=== PATIENT | male | born 1980 | race Caucasian/White ===

== ENCOUNTER → 2019-03-11 08:24 | Outpatient (CLI) | payer OTHER, SELFPAY ==
[2019-03-11 10:32] LABS: Anion Gap 8 (5-15); BUN 10 mg/dL (7-18); BUN/Creat Ratio 11.4 RATIO (10-20); Calcium,Total 9.4 mg/dL (8.5-10.1); Chloride 103 mmol/L (98-107); Cholesterol 184 mg/dL (200); Creatinine, Serum 0.88 mg/dL (0.70-1.30); EST Glomerular Filtration Rate 104 mL/min (>60); Est Glom Filt Rate - Afr Amer 125 mL/min (>60); Glucose 86 mg/dL (74-106); High Density Lipoprotein 29 mg/dL; Potassium 4.5 mmol/L (3.5-5.1); Sodium Level 138 mmol/L (136-145); Triglycerides 171 mg/dL; Very Low Density Lipoprotein 34 mg/dL (5-40)
== END ==
PROVIDERS: Family Provider Family Medicine; PCP Family Medicine; Referring Provider Family Medicine; Visit Provider Family Medicine
DX: Z00.00 Encounter for general adult medical examination without abnormal findings (principal)
CPT/HCPCS: 36415; 80048; 80061

== ENCOUNTER 2019-12-06 08:58 | Inpatient (IN) | payer OTHER, SELFPAY ==
[2019-12-06] VITALS (10 sets, daily range): BP systolic 115–142; BP diastolic 71–98; PULSE 74–112; RESP 16–18; TEMP 36.3–37.5; O2SAT 94–97; BMI 32.3; BMI 32.8; BMI 32.9
--- NOTE | 2019-12-06 09:16 | CT_ITS ---
STUDY: CT ABDOMEN AND PELVIS WITHOUT CONTRAST REASON FOR EXAM: Male, 39 years old patient with diffuse abdominal pain for four days with elevated wbc count. RADIATION DOSAGE (If Supplied By Facility): CTDIvol = ( 15.39 ) mGy, DLP = ( 1528.95 ) mGycm TECHNIQUE: Transaxial images were obtained from the dome of the diaphragm to the symphysis pubis without oral contrast, and without intravenous contrast. Sagittal and coronal images were reconstructed. Individualized dose optimization techniques were used for this CT. COMPARISON: None. FINDINGS: There is heterogeneous groundglass attenuation in the right lower lobe and left lower lobe that may represent a combination of dependent atelectasis and early airspace disease. There is also right middle lobe groundglass attenuation that could represent early airspace disease. The visualized portions of the heart are within normal limits. Normal liver. Normal gallbladder and extrahepatic biliary system. Normal spleen. Normal pancreas. Normal bilateral adrenal glands. Normal right kidney. Normal left kidney. Normal visualized stomach. There is dilated small bowel which is fluid-filled. Maximum transverse dimension of the abnormal small bowel is approximately 4.1 cm. The transition occurs a within the lower central abdomen with appears to be some acute inflammation. There is abnormal thickening of the chirinos of the adjacent mid small bowel. There is pneumoperitoneum within the lower abdomen as well adjacent to the mid small bowel and the sigmoid colon. The distal small bowel is not dilated. The colon is not dilated. Stool and fluid is visible within the colon. There appears to be abnormal thickening and potential enhancement of the sigmoid colon that suggests possibility of acute diverticulitis. The appendix is visualized and appears normal. Normal abdominal aorta. Normal inferior vena cava. Normal retroperitoneum. The urinary bladder is not distended. Normal visualized prostate gland. There is a small amount of pelvic fluid probably related to acute inflammation within the small bowel and/or sigmoid colon. Normal abdominal wall. The bones appear osteopenic. CT/Abdomen/Pelvis W IV Cont ONLY IMPRESSION: 1. Findings are consistent with a cyst small bowel obstruction involving the mid and proximal small bowel. The etiology for the bowel obstruction appears to be abnormal appearing small bowel within the lower abdomen and pelvis with acute inflammation and abnormal thickening of the chirinos. There is also pneumoperitoneum suggesting contained perforation. 2. There appears to be abnormal sigmoid colon as well where there is also pneumoperitoneum suggesting there may be either primary or secondary sigmoid colon diverticulitis. Other potential etiologies include sequela of Crohn''s disease. 3. Bilateral basilar atelectasis and/or airspace disease. N.B. : The above information has been verbally conveyed by Charlee Herring MD to Nicky Judge MD, on 12/06/2019 10:40:00 (ET). Electronically Signed: Charlee Herring MD at 10:48 EST , Service support ,
--- NOTE | 2019-12-06 09:18 | ED.DCSUM_ITS ---
History of Present Illness Informant: Patient, Significant Other - Abdominal Pain/Flank Pain Onset: Days - 3 days Context: Gradual Onset Timing: Intermittent Quality: Cramping Location: Diffuse Current Severity: Severe Maximum Severity: Severe Worsened by: Movement Relieved by: Remaining Still - Nausea/Vomiting/Emesis GI Symptom: Nausea. Negative for: Vomiting - Diarrhea/Melena/Hematochezia GI Symptom: Negative for: Diarrhea, Melena, Hematochezia Associated Symptoms: Negative for: Dysuria, Frequency, Hematuria, Urgency Narrative: 39-year-old male who denies any significant past medical history presents to the emergency department with diffuse cramping intermittent abdominal pain progressively worsening over the last 3 days. He has been having a fever as high as 102 ?F orally as well. He has had nausea but no vomiting. No diarrhea melena or hematochezia. He has been mildly constipated. No back pain or urinary symptoms. Pain really only worse with moving. He has been able to eat. No history of similar pain. No history of abdominal surgery. He has had a colonoscopy roughly 15 years ago that was unremarkable. Prior similar symptoms: No Recent Illness/Hospitalization: No <Lio Cheney - Last Filed: 12/06/19 11:26> <Ashlyn Judge - Last Filed: 12/06/19 13:49> Chief Complaint: Abd Pain Past Medical History Prior records reviewed: Yes Past Medical History: - - Depression and anxiety Surgical History: no surgical history Lives: With Family Smoking Status: Never smoker Alcohol: None <Lio Cheney - Last Filed: 12/06/19 11:26> <Ashyln Judge - Last Filed: 12/06/19 13:49> - Allergies and Home Meds Allergies/Adverse Reactions: Allergies No Known Allergies Allergy (Unverified 12/06/19 09:00) Review of Systems All systems negative except as indicated General: Reports: Chills, Fever. Denies: Malaise, Subjective, Sweats Eyes: Denies: Visual changes - bilaterally, Blurred Vision - bilaterally, Diplopia ENT: Denies: Rhinorrhea, Sore throat Cardiovascular: Denies: Chest pain, Palpitations, Heart racing Respiratory: Denies: Dyspnea, Cough, Sputum Gastrointestinal: Reports: Abdominal pain, Nausea, Constipation. Denies: Vomiting, Diarrhea, Melena, Hematochezia Genitourinary: Denies: Dysuria, Hematuria, Frequency Musculoskeletal: Denies: Myalgias, Arthralgias, Back pain Skin: Denies: Rash, Abscess, Abrasions, Wounds Neurological: Denies: Headache, Weakness, Parasthesia Endocrine: Denies: Polyuria, Polydipsia <Lio Cheney - Last Filed: 12/06/19 11:26> Physical Exam Vital Signs/Narrative: Vital Signs Temp Pulse Resp BP Pulse Ox 12/06/19 09:01 98.4 F 112 H 16 142/90 H 97 Inital Vital Signs reviewed: Yes General: Well nourished, Well developed, No Acute Distress Head: Normocephalic, Atraumatic Eyes: Perrl, EOMI ENT: Moist mucous membranes Neck: Supple, Nontender, No lymphadenopathy Cardiovascular: Regular rate, Regular rhythm, No murmurs Respiratory: No distress, CTA bilaterally, Chest nontender Abdomen: Soft, Nondistended, Normal bowel sounds, No masses, Tender - Diffusely tender. No focal tenderness. No guarding or rebound tenderness.. Negative for: Guarding, Rebound tenderness, Hyperactive bowel sounds, Hypoactive bowel sounds, Ventral hernia, Inguinal hernia, Psoas sign, Obturator sign, Rovsig's sign, Beck's sign Back: Nontender, Normal Inspection Extremities: Nontender, No edema Skin: Normal color, No rash Neurological: Alert, Oriented x3 Psychological: Normal affect <Lio Cheney - Last Filed: 12/06/19 11:26> Diagnostic/Tx/Re-eval CT: Abdomen and Pelvis - Rhythm Strip Rate: 90 - Medical Decision Making Patient declined analgesia or antiemetics but he was given IV fluids. He was made n.p.o. Laboratory work-up shows a white blood cell count of 21. CBC, CMP are both unremarkable. Urinalysis unremarkable as well. CT scan abdomen and pelvis with IV contrast demonstrates small bowel obstruction involving the mid and proximal small bowel. Etiology for this bowel obstruction appears to be abnormal. Small bowel within the lower abdomen and pelvis shows acute inflammation with abnormal thickening of the chirinos. There is also a pneumoperitoneum suggesting a contained perforation. There is been abnormal appearance of the sigmoid colon where there is also pneumoperitoneum suggesting that there may be either primary or secondary sigmoid: Diverticulitis. Other etiologies include sequelae of Crohn's disease. Dr. Tabor on-call surgeon was contacted, she came down to evaluate the patient in the emergency department. She will take the patient to the operating room. Patient is hemodynamically stable. He was given IV Flagyl and Cipro. He is agreeable with plan of care <Lio Cheney - Last Filed: 12/06/19 11:26> - Medical Decision Making I have personally performed a [id number] assessment of the patient and have reviewed the PA note. My macedo findings include 39-year-old male presents with abdominal pain x4 days. CT abdomen pelvis shows small bowel obstruction, pneumoperitoneum, diverticulitis. Patient was discussed with surgery and will be taken to the operating room. <Ashlyn Judge - Last Filed: 12/06/19 13:49> ED Disposition <Lio Cheney - Last Filed: 12/06/19 11:26> <sAhlyn Judge - Last Filed: 12/06/19 13:49> - Plan for ED Patient: Disposition: Acute Care Hospital [facility] Diagnosis: Pneumoperitoneum, Small bowel obstruction, Diverticulitis
[2019-12-06] MEDS: 0.9% Normal Saline 1,000 ML 1000 ML IV (09:26)
[2019-12-06 09:33] LABS: Absolute Lymphocyte Count 2.53 X10^3/uL (0.83-4.51); Absolute Neutrophil Count 17.6 X10^3/uL (2.0-7.7); Basophil# 0.07 X10^3/uL; Basophil% 0.3 % (0-1); Eosinophil# 0.01 X10^3/uL; Hematocrit 46.1 % (40-54); Lymphocyte # 2.53 X10^3/ul (4.0); Lymphocyte % 11.9 % (19-41); Mean Corp Hgb Conc 32.5 g/dL (32-36); Mean Corpuscular Hgb 27.5 pg (27.0-32.0); Mean Corpuscular Volume 84.4 fL (80-94); Mean Platelet Vol. 9.3 fl (6.2-12.0); Monocyte# 0.89 X10^3/uL; Monocyte% 4.2 % (0-10); NRBC Flagged by Analyzer 0 % (0-5); Neutrophil # 17.56 X10^3/uL (2.7-7.7); Neutrophil % 82.7 % (47-70); Platelet Count 385 K/mm3 (150-450); RBC Distribution Width CV 13.8 % (11.6-14.6); RBC Distribution Width SD 42.4 fl (35.1-43.9); Red Blood Count 5.46 M/mm3 (4.6-6.2); White Blood Count 21.3 K/mm3 (4.4-11.0)
[2019-12-06 09:46] LABS: ALB/GLOB Ratio 0.6 RATIO (0.9-2.4); AST(SGOT) 31 U/L (15-37); Alanine Aminotransfer ALT/SGPT 60 U/L (16-61); Albumin, Serum 3.3 g/dL (3.2-5.0); Alkaline Phosphatase 153 U/L (45-117); Anion Gap 9 (5-15); BUN 16 mg/dL (7-18); BUN/Creat Ratio 17.1 RATIO (10-20); Calcium,Total 9.6 mg/dL (8.5-10.1); Chloride 98 mmol/L (98-107); Creatinine, Serum 0.94 mg/dL (0.70-1.30); EST Glomerular Filtration Rate 96 mL/min (>60); Est Glom Filt Rate - Afr Amer 117 mL/min (>60); Globulin 5.9 g/dL (2.2-4.2); Glucose 138 mg/dL (74-106); Lipase 118 U/L (73-393); Potassium 3.5 mmol/L (3.5-5.1); Protein, Total 9.2 g/dL (6.4-8.2); Sodium Level 136 mmol/L (136-145)
--- NOTE | 2019-12-06 11:11 | HP.PCM_ITS ---
History and Physical Date of Admission: 12/06/19 Asked by ED physician to evaluate patient Chief Complaint: abdominal pain History of Present Illness: 39 y/o otherwise healthy WM presents with 4 days history of generalized abdominal pain. Worsening and therefore presented to ED at [facility]. He states he hasn't had a bowel movement since Saturday. He denies previous abdominal pain such as this. He has had normal bowel movements prior to this - denies chronic constipation or diarrhea He has had vomiting since yesterday and nausea. Had temp of 102F three days ago. States that pain ranges from 5 to 7-8 out of 10 on scale of 1-10 with 10 being the worst pain. Had colonoscopy in early and he states it was normal. No colon cancer or inflammatory bowel disease known in family. WBC in ED is 16.7K with left shift of differential. CT scan - Normal visualized stomach. There is dilated small bowel which is fluid-filled. Maximum transverse dimension of the abnormal small bowel is approximately 4.1 cm. The transition occurs a within the lower central abdomen with appears to be some acute inflammation. There is abnormal thickening of the chirinos of the adjacent mid small bowel. There is pneumoperitoneum within the lower abdomen as well adjacent to the mid small bowel and the sigmoid colon. The distal small bowel is not dilated. The colon is not dilated. Stool and fluid is visible within the colon. There appears to be abnormal thickening and potential enhancement of the sigmoid colon that suggests possibility of acute diverticulitis. Past Medical History: denies major medical illnesses Past Surgical History: denies Medications: fluoxetine wellbutrin Allergies: Has no known drug allergies Social history: TOB use denies Review of Systems: General - has fevers as per HPI Cardiovascular denies chest pain, denies history of heart attack Pulmonary denies shortness of breath, denies coughing up blooda Gastrointestinal as per HPI, denies blood in stools Neurological denies chronic numbness/weakness of extremities, denies seizures, denies history of stroke Genitourinary denies burning with urination, denies blood in urine Hematological denies history of blood clots, denies spontaneous/prolonged bleeding Skin denies open non healing wounds Musculoskeletal denies history of fractures, denies arthritis Endocrine denies diabetes Psychological denies suicidal ideation, denies hallucinations Physical examination: Vital signs Temp 97.6F HR 87 RR 18 BP 153/112 General WD/WN WM in no apparent distress, alert and oriented, not septic appearing HEENT Normocephalic. EOM intact with sclera clear and no icterus noted. Neck is supple with no jugular venous distention noted. Trachea is midline. Lungs normal breath sounds in all lung mcdonnell. No rales/rhonchi/wheezing noted. No labored breathing noted, such as retractions. No cough heard. Heart normal S1 and S2 auscultated. No rubs/clicks/murmurs noted. Normal size and location by auscultation. Abdomen soft but with diffuse tenderness, rebound tenderness, difficult to determine if distended or masses due to body habitus Extremities no calf tenderness noted. No pitting edema noted. Genitourinary/Rectal deferred Skin normal skin integrity. Neurological non focal. Psychological normal affect, patient is calm and appropriate IMPRESSION: acute abdomen with perforated viscus leukocytosis DISCUSSION/PLAN: I have discussed the above with the patient and his who is present with him. There is no clear etiology of the pneumoperitoneum which is c/w perforated viscus in the abdomen and given patient's presentation this is a surgical abdomen. I have therefore explained to patient, that I will first proceed with diagnostic laparoscopy to locate source of disease. I may have to proceed to open laparotomy if source cannot be identified or any procedure to be done that precludes laparoscopic treatment. I have counseled the patient as to the risks of the procedure, including but not limited to: infection, bleeding, injury to any blood vessels/nerves, scar tissue, injury to any intrabdominal organs, injury to kidney/ureters, injury to bowel/bladder, intraabdominal abscess/bleeding, hernias at incisional sites, wound infections, possible open procedure, need for enterostoma, complications of anesthesia, postoperative pneumonia/cardiac problems/blood clots etc. the patient understands. He wishes to proceed. I have answered all questions to the patient?s satisfaction and the patient has no further questions.
[2019-12-06] MEDS: Morphine 4 MG/ML Syringe IV ×2 (11:19→19:47)
[2019-12-06] MEDS: Ciprofloxacin 400 MG/200 ML BAG 200 MG IV ×2 (11:19→22:56)
--- NOTE | 2019-12-06 11:48 | RAD_ITS ---
STUDY: X-RAY - ABDOMEN/PELVIS REASON FOR EXAM: Male, 39 years old. NG PLACEMENT TECHNIQUE: AP supine view. COMPARISON: None. FINDINGS: Normal visualized lung bases. NG tube tip is in the gastric antrum. Mild gaseous dilatation of small bowel loops worrisome for partial distal small bowel obstruction. There is no demonstrated free abdominal air. The left flank is cut off. Normal visualized liver parenchyma. Right kidney shows contrast opacification of the normal right pelvicalyceal system. Faint visualization of the left pelvicalyceal system. Normal soft tissue structures. Normal visualized osseous structures. RAD/Abdomen Single View (Portable) IMPRESSION: 1. NG tube tip is in the gastric antrum. 2. Gaseous dilatation of the small bowel loops is suspicious for partial distal small bowel obstruction. 3. Contrast in the pelvicalyceal systems of both kidneys. Electronically Signed: Rosalio Amos MD at 12:45 EST , Service support ,
[2019-12-06] MEDS: metroNIDAZOLE 500 MG/100 ML BAG 100 MG IV ×2 (12:34→21:36)
--- NOTE | 2019-12-06 12:45 | COL_PTH ---
PATIENT: DANIEL YUSUF LOC: PCU U#:[id number] AGE/SX: 39/M ROOM: [facility] RE12/06/[address]: Dr. Anayna Rain MD : 1980 BED: 1 DIS: 12/11/2019 SPEC #: [id number] RECD: 12/07/19 10:55 STATUS: IRVIN REQ #: [id number] EDWIN: 12/06/19 12:[address]: Ananya Rain DEPT: SURGICAL PATHOLOGY RECD BY: Mike De Santiago ENTERED: 12/07/19 11:08 SP TYPE: COLON OTHR DR: Dr. Javid Yarbrough MD Tissues: Colon, NOS Procedures: Surgery Specimen Level V HEADER OPERATION: Exploratory laparoscopy converted to open bowel resection PRE-OP DIAGNOSIS: Acute abdomen with perforated viscus, leukocytosis TISSUE SUBMITTED: Sigmoid colon MICROSCOPIC DIAGNOSIS Sigmoid colon, colectomy: Diverticulosis and diverticulitis with focal area of abscess formation in the pericolonic adipose tissue. SJ:anabel 12/08/19 MICROSCOPIC DESCRIPTION Slides are reviewed. GROSS DESCRIPTION Received in fixative is one container labeled with the patient's name and designated sigmoid colon. The specimen consists of an 8 cm segment of bowel with attached fibrofatty tissue that displays prominent fat wrapping. Sections reveal a few diverticula. None of these appear to have perforated through the bowel wall. Serial sections of the fibrofatty tissue reveal a cystic lesion adjacent to the bowel measuring 1 cm in greatest dimension and possibly representing a pericolic abscess. The margins of excision are grossly unremarkable. Present free in the container are multiple reddish-mancera fragments of fibrofatty tissue with grayish borders. Meat Carrier sections are submitted as follows: 1 - mucosal margins, one inked black, 2-4 - diverticula, 5 - pericolic cyst (possible abscess), 6 - pericolic fibrofatty tissue. / AM:anabel 12/07/19 TC:5 CPT: 11718
[2019-12-06] MEDS: Lactated Ringers 1,000 ML 150 ML IV ×2 (14:30→16:18)
[2019-12-06] MEDS: Bupiv/Epi 0.25% 30 ML Vial (15:18)
--- NOTE | 2019-12-06 15:24 | OP.PCM_ITS ---
Report of Operation Date of Procedure: 12/06/19 Pre-Operative Diagnosis: perforated viscus, pneumoperitoneum Post-Operative Diagnosis: perforated sigmoid diverticulitis Surgery/Procedure Performed:: diagnostic laparoscopy, sigmoid colectomy, creation of end descending colostomy Description of Surgical Findings:: perforated sigmoid diverticulitis benzene washer operator: Gladis Bowen Type of Anesthesia:: General Anesthesiologist: Jackie Moore Specimen's removed: portion of sigmoid colon Estimated Blood Loss (mL): 50 ml Fluids Replaced: 1500 ml RL Description of Procedure: After informed consent was obtained, patient was brought to the Operating Room. Appropriate time out protocol was followed. Patient was then placed under GETA by Dr. Moore. The abdomen was prepped with sterile surgical preparation and appropriate sterile surgical drapes were placed. A location above the umbilicus was chosen for the camera trocar site, the skin and subcutaneous tissues were infiltrated with local anesthetic. A small skin incision was made. The fascia was elevated and opened under direct visualization. An 11 mm trocar was the placed into the intraabdominal cavity and this was visualized with the laparoscope. A pneumoperitoneum was created with CO2 insufflation. Visualization of the intraabdominal contents was done. There was purulent fluid within the peritoneal cavity. There was fibrinous exudate and pus emanating from the central lower portion of the abdomen just b elow the umbilicus. There appeared to be inflamed small bowel that was adherent to a central location. A 5 mm left sided trocar was placed for additional grasper manipulation. The small bowel appeared indurated and adherent loops of small bowel and there was a large amount of fibrinous exudate. There was noted to be bile and purulent debris emanating from between these loops of adherent small bowel. This was therefore initially thought to be perforated small bowel possibly due to Crohn's disease. The laparoscopic procedure was converted to an open procedure. A midline skin incision was made with a 10 blade scalpel. A Mo retractor was used for increased operative exposure. The bowel was then carefully examined. Deep to the loops of small bowel, there was a segment of sigmoid colon and there was a perforation at this location. The indurated and inflamed small bowel with fibrinous exudate was a reaction to it walling off the large bowel perforation. There was no Crohn's disease. Findings were consistent with perforated sigmoid diverticulitis. The sigmoid colon at the site of perforation was the excised. The mesentery and its vasculature at this segment was incised with the Harmonic scalpel. Any larger blood vessels were ligated with vicryl suture. The proximal and distal aspect of the segment of sigmoid colon was then stapled with a TA-60 stapling device and the bowel was then transected. It was forwarded to pathology for analysis. The distal aspect of the end descending colon was from the left side wall of the abdominal cavity using the Harmonic scalpel. A left lower quadrant colostomy was then created. A circular skin incision was made in the left lower quadrant and the rectus muscle and fascia was divided enough to allow the end descending colon to pass through the opening. This was done without tension to the bowel and without twisting of its mesentery. Hemostasis was carefully controlled with electrocautery. The abdominal cavity was vigorously irrigated with normal saline and all irrigant was aspirated out. The midline fascia was reapproximated with running looped #1 PDS suture. The wound was irrigated with [place]. The colostomy was matured, suturing the mucosal edges to the edges of the circular skin incision using 3-0 chromic suture. Dressing applied, ostomy appliance applied. Patient was brought to the Recovery Room in stable condition - Complications none noted - Admit VTE Documentation VTE Present on Admission: Yes VTE Mechan Device Prophylaxis: SCD's
[2019-12-06] MEDS: Ondansetron 4 MG/2 ML Vial IV (19:48)
[2019-12-06] MEDS: Ketorolac 30 MG/ML Syringe IV (21:37)
[2019-12-07] MEDS: Lactated Ringers 1,000 ML 150 ML IV ×3 (02:17→18:04)
[2019-12-07 02:21] VITALS: BP 117/69; PULSE 90; RESP 18; TEMP 36.5; O2SAT 96
[2019-12-07] MEDS: Morphine 4 MG/ML Syringe IV ×4 (02:33→19:20)
[2019-12-07 03:55] LABS: Bacteria 0 SEEN /hpf (None Seen); Red Blood Cells-Urine 0 SEEN /hpf (0-5); Squamous Epithelial Cells - UA 0 SEEN /hpf (0-5); White Blood Cells 0 SEEN /hpf (0-5)
[2019-12-07 03:58] LABS: Color, Urine Yellow (Yellow); Glucose, Dipstick Normal (Normal); Ketone-Dipstick 50 mg/dl (Negative); Leukocyte Esterase-Dipstick 25 /ul (Negative); Nitrite-Dipstick Negative (Negative); Occult Blood-Urine 25 /ul (Negative); Protein-Dipstick 30 mg/dl (Negative); Specific Gravity, Urine 1.025 (1.002-1.030); Urine Clarity Sl. Cloudy (Clear); Urine Urobilinogen 8 mg/dl (Normal)
[2019-12-07 04:01] LABS: Urine Bilirubin Dipstick 1 mg/dL (Negative)
[2019-12-07 04:13] LABS: Amorphous Sediment 1+; Mucous, Urine 1+ /hpf (<or=2+)
[2019-12-07 05:17] LABS: Absolute Neutrophil Count 16.7 X10^3/uL (2.0-7.7); Basophil# 0.04 X10^3/uL; Basophil% 0.2 % (0-1); Hematocrit 36.9 % (40-54); Hemoglobin 11.7 g/dL (13.0-16.5); Lymphocyte % 10.3 % (19-41); Mean Corp Hgb Conc 31.7 g/dL (32-36); Mean Corpuscular Hgb 27.7 pg (27.0-32.0); Mean Corpuscular Volume 87.4 fL (80-94); Mean Platelet Vol. 8.9 fl (6.2-12.0); Monocyte# 1.26 X10^3/uL; Monocyte% 6.2 % (0-10); NRBC Flagged by Analyzer 0 % (0-5); Neutrophil # 16.73 X10^3/uL (2.7-7.7); Neutrophil % 82.4 % (47-70); Platelet Count 323 K/mm3 (150-450); RBC Distribution Width CV 14.3 % (11.6-14.6); RBC Distribution Width SD 45.3 fl (35.1-43.9); Red Blood Count 4.22 M/mm3 (4.6-6.2); White Blood Count 20.3 K/mm3 (4.4-11.0)
[2019-12-07] MEDS: Ketorolac 30 MG/ML Syringe IV ×3 (05:39→22:28)
[2019-12-07] MEDS: metroNIDAZOLE 500 MG/100 ML BAG 100 MG IV ×3 (05:39→21:33)
[2019-12-07] MEDS: Lidocaine Jelly 2% 20 ML Syringe (URO-JET) 20 APPLIC TOPICAL ×2 (05:48→13:38)
--- NOTE | 2019-12-07 07:56 | PN.SURG_ITS ---
Patient Problems: Active and Suspected Problems (Last Reviewed 11/09/17 @ 08:31 by Irene Jaime) Pneumoperitoneum (Acute) Small bowel obstruction (Acute) Diverticulitis (Acute) Subjective: patient doing well on POD#1 pain controlled with pain meds - Physical Exam Vitals/I&O's: Vital Signs Temp Pulse Resp BP Pulse Ox 97.7 F L 90 18 117/69 96 12/07/19 02:21 12/07/19 02:21 12/07/19 02:21 12/07/19 02:21 12/07/19 02:21 Oxygen Flow Rate (L/min) 2 Oxygen Delivery Method Nasal Cannula Weight: 110 kg Body Mass Index (BMI) 32.8 Intake and Output for Last 24 Hours 15/12/06/12/07/19 23:59 23:59 23:59 Intake Total 3425 / 3485 970 / 970 Output Total 1250 / 1250 Balance 3425 / 3285 -280 / -280 General: Alert, Oriented x3 Oral: Moist Mucosa Neck: Supple Lungs: Normal air movement Abdomen: Soft, - - stoma pink/intact Laboratory Results 12/06/19 09:21: WBC 21.3 H, RBC 5.46, Hgb 15.0, Hct 46.1, MCV 84.4, MCH 27.5, MCHC 32.5, RDW Std Deviation 42.4, RDW Coeff of Maren 13.8, Plt Count 385, MPV 9.3, Immature Gran % (Auto) 0.900, Neut % (Auto) 82.7 H, Lymph % (Auto) 11.9 L, Catron % (Auto) 4.2, Eos % (Auto) 0.0, Baso % (Auto) 0.3, Absolute Neuts (auto) 17.6 H, Absolute Lymphs (auto) 2.53, Nucleated RBC % 0 12/06/19 09:21: Sodium 136, Potassium 3.5, Chloride 98, Carbon Dioxide 29.0, Anion Gap 9, BUN 16, Creatinine 0.94, Estim Creat Clear Calc 118.10, Est GFR (MDRD) Af Amer 117, Est GFR (MDRD) Non-Af 96, BUN/Creatinine Ratio 17.1, Glucose 138 H, Calcium 9.6, Total Bilirubin 0.60, AST 31, ALT 60, Alkaline Phosphatase 153 H, Total Protein 9.2 H, Albumin 3.3, Globulin 5.9 H, Albumin/Globulin Ratio 0.6 L, Lipase 118 12/07/19 03:20: Urine Color Yellow, Urine Clarity Sl. Cloudy, Urine pH 6.0, Ur Specific [place] 1.025, Urine Protein 30 H, Urine Glucose (UA) Normal, Urine Ketones 50 H, Urine Occult Blood 25 H, Urine Nitrite Negative, Urine Bilirubin 1 H, Urine Urobilinogen 8 H, Ur Leukocyte Esterase 25 H, Urine RBC 0 SEEN, Urine WBC 0 SEEN, Ur Squamous Epith Cells 0 SEEN, Amorphous Sediment 1+, Urine Bacteria 0 SEEN, Urine Mucus 1+ 12/07/19 05:05: WBC 20.3 H, RBC 4.22 L, Hgb 11.7 L, Hct 36.9 L, MCV 87.4, MCH 27.7, MCHC 31.7 L, RDW Std Deviation 45.3 H, RDW Coeff of Maren 14.3, Plt Count 323, MPV 8.9, Immature Gran % (Auto) 0.900, Neut % (Auto) 82.4 H, Lymph % (Auto) 10.3 L, Catron % (Auto) 6.2, Eos % (Auto) 0.0, Baso % (Auto) 0.2, Absolute Neuts (auto) 16.7 H, Absolute Lymphs (auto) 2.10, Nucleated RBC % 0 Current Medications Ciprofloxacin (Cipro) 400 mg in 200 mls @ 200 mls/hr IV Q12 [facility] Last Infusion: 12/06/19 23:58 Dose: Infused Documented by: Metronidazole (Flagyl) 500 mg in 100 mls @ 100 mls/hr IV Q8 [facility] Last Infusion: 12/07/19 06:39 Dose: Infused Documented by: Lactated Ringer's () 1,000 mls @ 150 mls/hr IV .[id number] [facility] Last Infusion: 12/07/19 06:39 Dose: 150 mls/hr Documented by: Sodium Chloride () 250 mls @ 15 mls/hr IV .[id number] PRN PRN Reason: Saline Flush Ketorolac Tromethamine (Toradol (Bkc)) 30 mg IV Q8 [facility] Stop: 12/09/19 15:48 Last Admin: 12/07/19 05:39 Dose: 30 mg Documented by: Morphine Sulfate () 4 mg IV Q2H PRN PRN PRN Reason: Pain Score 4-10/10 Last Admin: 12/07/19 02:33 Dose: 4 mg Documented by: Ondansetron HCl (Zofran) 4 mg IV Q8H PRN PRN PRN Reason: NAUSEA Last Admin: 12/06/19 19:48 Dose: 4 mg Documented by: Sodium Chloride () 10 - 40 ml IV UD PRN PRN Reason: SALINE FLUSH Medical Necessity - Tobacco Use Smoking Status: Never smoker Tobacco Use: Non-smoker Assessment/Plan All Active Problems (Last Reviewed 11/09/17 @ 08:31 by Irene Jaime) Pneumoperitoneum (Acute) Small bowel obstruction (Acute) Diverticulitis (Acute) IMPRESSION: POD#1 s/p sigmoid resection, creation of end descending colostomy, Dinh's PLAN: continue ambulation and incentive spirometry consider d/c NG tube this evening or tomorrow morning ostomy nurse consultation placed continue supportive care
[2019-12-07] MEDS: 0.9% Saline Lock 10 ML Syringe IV ×4 (08:24→22:28)
[2019-12-07 08:27] VITALS: BP 118/72; PULSE 68; RESP 18; TEMP 36.4; O2SAT 95
--- NOTE | 2019-12-07 08:27 | NURSING ---
Was consulted on patient for new colostomy. pt is POD#1 s/p sigmoid colectomy with end colostomy for perforated sigmoid diverticulitis. colostomy appliance intact with a small amount of bloody drainage noted in the appliance. no gas noted at this time. NG tube in place. pt states he has been up ambulating. there is some shadow drainage noted on the midline abdominal dressing. removed dressing. there was a moderate amount of bloody drainage noted. incision is well approximated with catarina in place. the ostomy appliance is over the incision as well. cleansed incision with NS and pat dry. applied a new dry dressing and secured with Medipore tape. plan to change the ostomy appliance with patient tomorrow. Pt states he does live alone but also has some resources that can assist him as well. would recommend home health as well of resources are not available. will get supplies ordered through [employer]. pt denies further questions at this time. will continue ostomy teaching.
[2019-12-07] MEDS: Ciprofloxacin 400 MG/200 ML BAG 200 MG IV ×2 (09:56→22:36)
--- NOTE | 2019-12-07 12:58 | CHAPLAIN ---
Type of Pastoral Visit _x__ Initial Visit ___ Follow-up Visit ___ On-call Visit ___ General Patient Visit ___ Spiritual Assessment ___ Family Conference ___ Bereavement ___ Rapid Response ___ Code Blue ___ Other (describe below) Pastoral Care Referral From _x__ Patient ___ Family ___ Nurse ___ Physician ___ Director Of Emergency Nursing ___ Director Part ___ Other (describe below) Sacrament/Intervention _x__ Active listening ___ Anointing ___ Restorationism ___ Bereavement ___ Communion _x__ Stacy exploration ___ _x__ Life review _x__ Prayer ___ Reconciliation ___ Sacrament of Sick ___ Supportive presence ___ Wedding ___ Other (describe below) Pastoral Comments
--- NOTE | 2019-12-07 13:46 | CASEMGMT ---
MELA MARCUS assessment: Face to Face with patient for initial transition planning/care coordination assessment. MELA MARCUS introduced self and role at [facility], pt voices understanding and consents to assessment at this time. Pt is sitting up in bed in no distress at this time. Pt is A/Ox4 at this time and answers all questions appropriately at this time. Care providers, pharmacy, and demographics verified/updated at this time. Presentation: Abd pain x4 days w/ intermittent fevers Admitting dx: pneumoperitoneum, diverticulitis, SBO PCP: [facility] Specialists: Pt states currently no specialists. Preferred Pharmacy: [facility] retail pharm Insurance: Self pay Prescription Benefit: Self pay Living Will/HPOA: Pt has LW/HPOA and they are currently on file at [facility] at this time. Pt's ex-, Rosalio Varela, is HPOA and pt states plans to keep the same at this time. LNOK: Rosalio Varela, ex-/HPOA Living Arrangements: Pt states lives alone in home and states no concerns at home at this time. Pt is independent with ADL's. Transportation: Pt states drives self and states no transportation concerns at this time. DME/HHC: Pt states no current DME or need for any at this time. Pt states no hx of HHC or SNF. 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 Pt states that he has someone to assist him and does not feel he will need HHC at discharge. Pt states no concerns with going home at time of discharge. 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 Pt states does not smoke cigarettes or drink ETOH. Pt states no further concerns/needs at this time. CM to follow for any further discharge planning/needs. Advised pt to ask for CM if any further questions/concerns/needs arise, voices understanding. Pt Goal: Home Plan: [place] MELA MARCUS
[2019-12-07 15:27] VITALS: BP 123/74; PULSE 70; RESP 18; TEMP 36.7; O2SAT 93
[2019-12-07 21:00] VITALS: BP 126/80; PULSE 80; RESP 16; TEMP 36.7; O2SAT 93
[2019-12-08] MEDS: Lactated Ringers 1,000 ML 150 ML IV ×3 (02:51→17:53)
[2019-12-08 03:00] VITALS: BP 129/81; PULSE 65; RESP 16; TEMP 37; O2SAT 94
[2019-12-08] MEDS: Ketorolac 30 MG/ML Syringe IV ×3 (06:07→21:12)
[2019-12-08] MEDS: 0.9% Saline Lock 10 ML Syringe IV (06:08)
[2019-12-08] MEDS: metroNIDAZOLE 500 MG/100 ML BAG 100 MG IV ×3 (06:11→21:12)
--- NOTE | 2019-12-08 07:28 | PN.SURG_ITS ---
Patient Problems: Active and Suspected Problems (Last Reviewed 11/09/17 @ 08:31 by Irene Jaime) Pneumoperitoneum (Acute) Small bowel obstruction (Acute) Diverticulitis (Acute) Subjective: Patient feel comfortable, pain medications controlling pain has ambulated complaint of sweats and light headedness, VSS - Physical Exam Vitals/I&O's: Vital Signs Temp Pulse Resp BP Pulse Ox 98.6 F 65 16 129/81 H 94 12/08/19 03:00 12/08/19 03:00 12/08/19 03:00 12/08/19 03:00 12/08/19 03:00 Oxygen Flow Rate (L/min) 2 Oxygen Delivery Method Room Air Weight: 110 kg Body Mass Index (BMI) 32.8 Intake and Output for Last 24 Hours 12/06/19 12/07/19 12/08/19 23:59 23:59 23:59 Intake Total 3425 / 3485 4337.5 / 4737.5 1022.5 / 1022.5 Output Total 2500 / 3400 1750 / 1750 Balance 3425 / 3285 1837.5 / 1337.5 -727.5 / -727.5 General: Alert, Oriented x3 Oral: Moist Mucosa Neck: Supple Lungs: Normal air movement Abdomen: Soft, Hypoactive Bowel Sounds, - - incision is clean and dry stoma mucosa is viable Current Medications Ciprofloxacin (Cipro) 400 mg in 200 mls @ 200 mls/hr IV Q12 [facility] Last Infusion: 12/07/19 23:42 Dose: Infused Documented by: Metronidazole (Flagyl) 500 mg in 100 mls @ 100 mls/hr IV Q8 [facility] Last Admin: 12/08/19 06:11 Dose: 100 mls/hr Documented by: Lactated Ringer's () 1,000 mls @ 150 mls/hr IV .[id number] [facility] Last Admin: 12/08/19 02:51 Dose: 150 mls/hr Documented by: Sodium Chloride () 250 mls @ 15 mls/hr IV .[id number] PRN PRN Reason: Saline Flush Ketorolac Tromethamine (Toradol (Bkc)) 30 mg IV Q8 [facility] Stop: 12/09/19 15:48 Last Admin: 12/08/19 06:07 Dose: 30 mg Documented by: Morphine Sulfate () 4 mg IV Q2H PRN PRN PRN Reason: Pain Score 4-10/10 Last Admin: 12/07/19 19:20 Dose: 4 mg Documented by: Ondansetron HCl (Zofran) 4 mg IV Q8H PRN PRN PRN Reason: NAUSEA Last Admin: 12/06/19 19:48 Dose: 4 mg Documented by: Sodium Chloride () 10 - 40 ml IV UD PRN PRN Reason: SALINE FLUSH Last Admin: 12/08/19 06:08 Dose: 10 ml Documented by: Medical Necessity - Tobacco Use Smoking Status: Never smoker Tobacco Use: Non-smoker Assessment/Plan All Active Problems (Last Reviewed 11/09/17 @ 08:31 by Irene Jaime) Pneumoperitoneum (Acute) Small bowel obstruction (Acute) Diverticulitis (Acute) IMPRESSION: POD#2 s/p sigmoid resection, creation of end descending colostomy, Dinh's PLAN: restart wellbutrin and fluoxetene continue ambulation and incentive spirometry d/c NG tube keep Khan until tomorrow am due to urinary retention continue supportive care
[2019-12-08 07:46] VITALS: BP 130/86; PULSE 79; RESP 16; TEMP 36.6; O2SAT 92
[2019-12-08 08:26] LABS: Bedside Glucose 94 mg/dL (70-110)
[2019-12-08] MEDS: FLUoxetine 20 MG Capsule 60 MG PO (09:43)
[2019-12-08] MEDS: Ciprofloxacin 400 MG/200 ML BAG 200 MG IV ×2 (09:43→22:17)
[2019-12-08] MEDS: buPROPion (XL) 300 MG TABLET.XL PO (09:44)
[2019-12-08] MEDS: Morphine 4 MG/ML Syringe IV ×2 (11:15→20:36)
--- NOTE | 2019-12-08 11:15 | NURSING ---
In to change ostomy appliance with patient and ex-. removed midline abdominal dressing and the colostomy appliance. there was minimal drainage noted on the old incisional dressing. incision is well approximated with catarina in place. the stoma is dark red and sits at skin level. stoma measures approx 1 1/2. peristomal skin is intact. cleansed peristomal skin with warm water. pat dry. applied a flat 2 piece [place] appliance with an [employer] ring. did offset the opening to prevent the appliance from sitting over the incision. once appliance was in place. applied a new dry dressing over the incision. secured dressing with Medipore tape. pt tolerated well.
[2019-12-08 12:10] LABS: Absolute Lymphocyte Count 2.44 X10^3/uL (0.83-4.51); Absolute Neutrophil Count 11.9 X10^3/uL (2.0-7.7); Basophil# 0.06 X10^3/uL; Basophil% 0.4 % (0-1); Eosinophil# 0.15 X10^3/uL; Eosinophils% 0.9 % (0-5); Hematocrit 34.8 % (40-54); Lymphocyte # 2.44 X10^3/ul (4.0); Lymphocyte % 15.5 % (19-41); Mean Corp Hgb Conc 31.6 g/dL (32-36); Mean Corpuscular Hgb 27.3 pg (27.0-32.0); Mean Corpuscular Volume 86.4 fL (80-94); Mean Platelet Vol. 9.2 fl (6.2-12.0); Monocyte# 0.89 X10^3/uL; Monocyte% 5.6 % (0-10); NRBC Flagged by Analyzer 0 % (0-5); Neutrophil % 75.4 % (47-70); Platelet Count 306 K/mm3 (150-450); RBC Distribution Width CV 14.3 % (11.6-14.6); RBC Distribution Width SD 45.4 fl (35.1-43.9); Red Blood Count 4.03 M/mm3 (4.6-6.2); White Blood Count 15.8 K/mm3 (4.4-11.0)
[2019-12-08 12:19] LABS: Anion Gap 3 (5-15); BUN 11 mg/dL (7-18); Calcium,Total 8.5 mg/dL (8.5-10.1); Chloride 106 mmol/L (98-107); Creatinine, Serum 0.73 mg/dL (0.70-1.30); EST Glomerular Filtration Rate 128 mL/min (>60); Est Glom Filt Rate - Afr Amer 155 mL/min (>60); Estimated Creatinine Clearance 152.07 ml/min; Glucose 102 mg/dL (74-106); Potassium 3.6 mmol/L (3.5-5.1); Sodium Level 140 mmol/L (136-145)
[2019-12-08 13:30] VITALS: BP 126/84; PULSE 85; RESP 16; TEMP 36.8; O2SAT 93
--- NOTE | 2019-12-08 13:53 | NURSING ---
Called to get pricing for ostomy supplies from [employer] since patient does not have insurance. [employer] recommended that patient go to [employer] to get supplies since they will be much cheaper from this site. also gave patient prices from [employer]. discussed with patient the options for 1 piece vs. 2 piece appliances as well. patient to discuss with ex- and decide what to order. also set patient up with secure start through [email or web address] for samples as well as a sample and education program through [facility]. pt very appreciative. will continue to assist patient as needed and continue education.
[2019-12-08 18:00] VITALS: BP 126/57; PULSE 76; RESP 16; TEMP 36.8; O2SAT 93
[2019-12-08 20:26] VITALS: BP 139/82; PULSE 78; RESP 18; TEMP 36.9; O2SAT 93
[2019-12-09 02:17] VITALS: BP 128/87; PULSE 70; RESP 16; TEMP 36.5; O2SAT 95
[2019-12-09] MEDS: Lactated Ringers 1,000 ML 150 ML IV ×2 (02:24→11:17)
[2019-12-09] MEDS: Ketorolac 30 MG/ML Syringe IV ×2 (05:00→13:00)
[2019-12-09] MEDS: metroNIDAZOLE 500 MG/100 ML BAG 100 MG IV ×3 (05:00→22:55)
--- NOTE | 2019-12-09 08:09 | PCM.PN.SRG ---
Patient Problems: Active and Suspected Problems (Last Reviewed 11/09/17 @ 08:31 by Irene Jaime) Pneumoperitoneum (Acute) Small bowel obstruction (Acute) Diverticulitis (Acute) Subjective: patient states that he feels well, ambulating well has had gas in stoma bag Khan d/c'd patient able to urinate without difficulty - Physical Exam Vitals/I&O's: Vital Signs Temp Pulse Resp BP Pulse Ox 97.7 F L 70 16 128/87 H 95 12/09/19 02:17 12/09/19 02:17 12/09/19 02:17 12/09/19 02:17 12/09/19 02:17 Oxygen Flow Rate (L/min) 2 Oxygen Delivery Method Room Air Weight: 110 kg Body Mass Index (BMI) 32.8 Intake and Output for Last 24 Hours 12/07/19 12/08/19 12/09/19 23:59 23:59 23:59 Intake Total 4337.5 / 4737.5 4115.0 / 4115.0 957.5 / 957.5 Output Total 2500 / 3400 3500 / 3500 600 / 600 Balance 1837.5 / 1337.5 615.0 / 615.0 357.5 / 357.5 General: Alert, Oriented x3 Oral: Moist Mucosa Neck: Supple Lungs: Normal air movement Abdomen: Soft, - - incision is dry/clean/intact Laboratory Results 12/08/19 07:39: POC Glucose 94 12/08/19 11:50: WBC 15.8 H, RBC 4.03 L, Hgb 11.0 L, Hct 34.8 L, MCV 86.4, MCH 27.3, MCHC 31.6 L, RDW Std Deviation 45.4 H, RDW Coeff of Maren 14.3, Plt Count 306, MPV 9.2, Immature Gran % (Auto) 2.200 H, Neut % (Auto) 75.4 H, Lymph % (Auto) 15.5 L, Luna % (Auto) 5.6, Eos % (Auto) 0.9, Baso % (Auto) 0.4, Absolute Neuts (auto) 11.9 H, Absolute Lymphs (auto) 2.44, Nucleated RBC % 0 12/08/19 11:50: Sodium 140, Potassium 3.6, Chloride 106, Carbon Dioxide 31.0, Anion Gap 3 L, BUN 11, Creatinine 0.73, Estim Creat Clear Calc 152.07, Est GFR (MDRD) Af Amer 155, Est GFR (MDRD) Non-Af 128, BUN/Creatinine Ratio 15.0, Glucose 102, Calcium 8.5 Current Medications Acetaminophen (Tylenol) 650 mg PO Q4H PRN PRN PRN Reason: Pain 1-10/10 or Fever Hydrocodone Bitart/Acetaminophen ([place] 5mg-325mg) 1 tablet PO Q4H PRN PRN PRN Reason: Pain Score 1-5/10 Bupropion HCl (Wellbutrin Xl) 300 mg PO DAILY [facility] Last Admin: 12/08/19 09:44 Dose: 300 mg Documented by: Fluoxetine HCl (Prozac) 60 mg PO DAILY [facility] Last Admin: 12/08/19 09:43 Dose: 60 mg Documented by: Ciprofloxacin (Cipro) 400 mg in 200 mls @ 200 mls/hr IV Q12 [facility] Last Infusion: 12/08/19 23:17 Dose: Infused Documented by: Metronidazole (Flagyl) 500 mg in 100 mls @ 100 mls/hr IV Q8 [facility] Last Infusion: 12/09/19 06:00 Dose: Infused Documented by: Lactated Ringer's () 1,000 mls @ 150 mls/hr IV .[id number] [facility] Last Infusion: 12/09/19 06:00 Dose: 150 mls/hr Documented by: Sodium Chloride () 250 mls @ 15 mls/hr IV .[id number] PRN PRN Reason: Saline Flush Ketorolac Tromethamine (Toradol (Bkc)) 30 mg IV Q8 [facility] Stop: 12/09/19 15:48 Last Admin: 12/09/19 05:00 Dose: 30 mg Documented by: Morphine Sulfate () 4 mg IV Q2H PRN PRN PRN Reason: Pain Score 4-10/10 Last Admin: 12/08/19 20:36 Dose: 4 mg Documented by: Ondansetron HCl (Zofran) 4 mg IV Q8H PRN PRN PRN Reason: NAUSEA Last Admin: 12/06/19 19:48 Dose: 4 mg Documented by: Sodium Chloride () 10 - 40 ml IV UD PRN PRN Reason: SALINE FLUSH Last Admin: 12/08/19 06:08 Dose: 10 ml Documented by: Medical Necessity - Tobacco Use Smoking Status: Never smoker Tobacco Use: Non-smoker Assessment/Plan All Active Problems (Last Reviewed 11/09/17 @ 08:31 by Irene Jaime) Pneumoperitoneum (Acute) Small bowel obstruction (Acute) Diverticulitis (Acute) IMPRESSION: POD#3 s/p sigmoid resection, creation of end descending colostomy, Dinh's PLAN: advance diet to clear liquids, if patient continues to clinically improve consider d/c to home tomorrow oral pain medications, toradol to be d/c'd this afternoon continue ambulation and incentive spirometry continue supportive care
[2019-12-09 08:20] VITALS: BP 135/86; PULSE 83; RESP 16; TEMP 36.3; O2SAT 96
[2019-12-09] MEDS: buPROPion (XL) 300 MG TABLET.XL PO (08:23)
[2019-12-09] MEDS: FLUoxetine 20 MG Capsule 60 MG PO (08:23)
[2019-12-09] MEDS: Ciprofloxacin 400 MG/200 ML BAG 200 MG IV ×2 (09:46→21:30)
[2019-12-09] MEDS: Morphine 4 MG/ML Syringe IV (13:47)
[2019-12-09 14:40] VITALS: BP 149/87; PULSE 73; RESP 16; TEMP 36.8; O2SAT 94
--- NOTE | 2019-12-09 15:42 | NURSING ---
Pt up ambulating in the halls. states he has been feeling great today. Pt states he has had some stool in the colostomy appliance. discussed ostomy supplies with patient and ex . the plan is for them to order supplies from [employer] since patient has no insurance. the appliance numbers had been given to patient along with cost yesterday. pt plans to order them today. pt will be sent home with supplies and should be getting samples through [facility] and [facility] as well. plan more education with patient and ex tomorrow. Pt is hoping to be able to be discharged. Denies further needs at this time.
[2019-12-09] MEDS: Ondansetron 4 MG/2 ML Vial IV (20:09)
[2019-12-09] MEDS: Lactated Ringers 1,000 ML 75 ML IV ×2 (20:10→20:17)
[2019-12-09] MEDS: 0.9% Saline Lock 10 ML Syringe IV (20:10)
[2019-12-09 21:00] VITALS: BP 142/93; PULSE 77; RESP 16; TEMP 37; O2SAT 97
[2019-12-09] MEDS: Acetaminophen 325 MG Tablet 650 MG PO (23:39)
[2019-12-10] MEDS: metroNIDAZOLE 500 MG/100 ML BAG 100 MG IV ×3 (05:10→22:21)
[2019-12-10] MEDS: Acetaminophen 325 MG Tablet 650 MG PO ×2 (05:14→22:23)
[2019-12-10 05:17] VITALS: BP 138/94; PULSE 75; RESP 16; TEMP 36.8; O2SAT 95
--- NOTE | 2019-12-10 07:27 | PN.SURG_ITS ---
Patient Problems: Active and Suspected Problems (Last Reviewed 11/09/17 @ 08:31 by Irene Jaime) Pneumoperitoneum (Acute) Small bowel obstruction (Acute) Diverticulitis (Acute) Subjective: had emesis with clear liquids last night and this morning has output per stoma and gas in bag also - Physical Exam Vitals/I&O's: Vital Signs Temp Pulse Resp BP Pulse Ox 98.3 F 75 16 138/94 H 95 12/10/19 05:17 12/10/19 05:17 12/10/19 05:17 12/10/19 05:17 12/10/19 05:17 Oxygen Flow Rate (L/min) 2 Oxygen Delivery Method Room Air Weight: 110 kg Body Mass Index (BMI) 32.8 Intake and Output for Last 24 Hours 12/08/19 12/09/19 12/10/19 23:59 23:59 23:59 Intake Total 4115.0 / 4115.0 5455.00 / 5455.00 593.75 / 593.75 Output Total 3500 / 3500 4600 / 4600 1750 / 1750 Balance 615.0 / 615.0 855.00 / 855.00 -1156.25 / -1156.25 General: Alert, Oriented x3 Oral: Moist Mucosa Neck: Supple Lungs: Normal air movement Abdomen: Soft, - - incision is clean and dry and intact, stoma mucosa is pink and functioning Current Medications Acetaminophen (Tylenol) 650 mg PO Q4H PRN PRN PRN Reason: Pain 1-10/10 or Fever Last Admin: 12/10/19 05:14 Dose: 650 mg Documented by: Hydrocodone Bitart/Acetaminophen ([place] 5mg-325mg) 1 tablet PO Q4H PRN PRN PRN Reason: Pain Score 1-5/10 Bupropion HCl (Wellbutrin Xl) 300 mg PO DAILY [facility] Last Admin: 12/09/19 08:23 Dose: 300 mg Documented by: Fluoxetine HCl (Prozac) 60 mg PO DAILY [facility] Last Admin: 12/09/19 08:23 Dose: 60 mg Documented by: Ciprofloxacin (Cipro) 400 mg in 200 mls @ 200 mls/hr IV Q12 [facility] Last Infusion: 12/09/19 22:30 Dose: Infused Documented by: Metronidazole (Flagyl) 500 mg in 100 mls @ 100 mls/hr IV Q8 [facility] Last Infusion: 12/10/19 06:10 Dose: Infused Documented by: Lactated Ringer's () 1,000 mls @ 75 mls/hr IV .[id number] [facility] Last Infusion: 12/10/19 06:10 Dose: 75 mls/hr Documented by: Sodium Chloride () 250 mls @ 15 mls/hr IV .[id number] PRN PRN Reason: Saline Flush Morphine Sulfate () 4 mg IV Q2H PRN PRN PRN Reason: Pain Score 4-10/10 Last Admin: 12/09/19 13:47 Dose: 4 mg Documented by: Ondansetron HCl (Zofran) 4 mg IV Q8H PRN PRN PRN Reason: NAUSEA Last Admin: 12/09/19 20:09 Dose: 4 mg Documented by: Sodium Chloride () 10 - 40 ml IV UD PRN PRN Reason: SALINE FLUSH Last Admin: 12/09/19 20:10 Dose: 10 ml Documented by: Medical Necessity - Tobacco Use Smoking Status: Never smoker Tobacco Use: Non-smoker Assessment/Plan All Active Problems (Last Reviewed 11/09/17 @ 08:31 by Irene Jaime) Pneumoperitoneum (Acute) Small bowel obstruction (Acute) Diverticulitis (Acute) IMPRESSION: POD#4 s/p sigmoid resection, creation of end descending colostomy, Dinh's PLAN: continue clear liquids suspect ileus continue present therapy, not ready to go home today continue ambulation and incentive spirometry continue supportive care
[2019-12-10 09:45] VITALS: BP 144/90; PULSE 69; RESP 16; TEMP 36.8; O2SAT 95
[2019-12-10] MEDS: Ondansetron 4 MG/2 ML Vial IV ×2 (09:50→19:26)
[2019-12-10] MEDS: HYDROcodone Bitartrate/Apap 5/325 Tablet PO ×2 (09:50→15:00)
[2019-12-10] MEDS: Ciprofloxacin 400 MG/200 ML BAG 200 MG IV ×2 (09:55→21:10)
[2019-12-10] MEDS: FLUoxetine 20 MG Capsule 60 MG PO (10:02)
[2019-12-10] MEDS: buPROPion (XL) 300 MG TABLET.XL PO (10:02)
--- NOTE | 2019-12-10 10:49 | NURSING ---
In to talk with patient and ex . patient is not being discharged today d/t nausea and some emesis last pm and this morning. patient has been emptying his appliance on his own now. there is a small amount of unformed brown stool in the ostomy appliance. will change appliance with patient and ex tomorrow if they request this. removed dressing from midline incision. there was minimal drainage noted. cleansed incision with NS. pat dry. applied a new dressing and secured with Medipore tape. pt tolerated well. pt states supplies will be ordered today from [employer].
[2019-12-10] MEDS: Famotidine 20 MG Tablet PO (11:28)
[2019-12-10] MEDS: Morphine 4 MG/ML Syringe IV ×2 (11:29→22:23)
[2019-12-10] MEDS: Lactated Ringers 1,000 ML 75 ML IV (11:31)
[2019-12-10 15:00] VITALS: BP 145/87; PULSE 74; RESP 16; TEMP 36.7; O2SAT 94
[2019-12-10] MEDS: oxyCODONE 5 MG Tablet PO ×2 (17:01→21:10)
[2019-12-10 21:10] VITALS: BP 146/95; PULSE 74; RESP 16; TEMP 36.6; O2SAT 94
[2019-12-10] MEDS: 0.9% Saline Lock 10 ML Syringe IV (22:21)
[2019-12-11] MEDS: Lactated Ringers 1,000 ML 75 ML IV (01:52)
[2019-12-11] MEDS: oxyCODONE 5 MG Tablet PO ×3 (02:29→11:01)
[2019-12-11] MEDS: Acetaminophen 325 MG Tablet 650 MG PO ×3 (02:29→11:01)
[2019-12-11 02:35] VITALS: BP 146/92; PULSE 75; RESP 18; TEMP 36.9; O2SAT 94
[2019-12-11] MEDS: 0.9% Saline Lock 10 ML Syringe IV ×2 (05:42→06:47)
[2019-12-11] MEDS: metroNIDAZOLE 500 MG/100 ML BAG 100 MG IV (05:42)
[2019-12-11 08:35] VITALS: BP 137/91; PULSE 78; RESP 18; TEMP 36.6; O2SAT 98
[2019-12-11] MEDS: Ciprofloxacin 400 MG/200 ML BAG 200 MG IV (09:51)
[2019-12-11] MEDS: buPROPion (XL) 300 MG TABLET.XL PO (09:52)
[2019-12-11] MEDS: FLUoxetine 20 MG Capsule 60 MG PO (09:52)
--- NOTE | 2019-12-11 10:08 | PN.SURG_ITS ---
Patient Problems: Active and Suspected Problems (Last Reviewed 11/09/17 @ 08:31 by Irene Jaime) Pneumoperitoneum (Acute) Small bowel obstruction (Acute) Diverticulitis (Acute) Subjective: Patient feels much improved stoma output with gas and stool pain better controlled with oxyir - denies nausea feels hungry starting solid this morning - Physical Exam Vitals/I&O's: Vital Signs Temp Pulse Resp BP Pulse Ox 97.8 F 78 18 137/91 H 98 12/11/19 08:35 12/11/19 08:35 12/11/19 08:35 12/11/19 08:35 12/11/19 08:35 Oxygen Flow Rate (L/min) 2 Oxygen Delivery Method Room Air Weight: 110 kg Body Mass Index (BMI) 32.8 Intake and Output for Last 24 Hours 12/09/19 12/10/19 12/11/19 23:59 23:59 23:59 Intake Total 5455.00 / 5455.00 2646.25 / 2646.25 1087.50 / 1087.50 Output Total 4600 / 4600 5000 / 5000 400 / 400 Balance 855.00 / 855.00 -2353.75 / -2353.75 687.50 / 687.50 General: Alert, Oriented x3 Oral: Moist Mucosa Neck: Supple Lungs: Normal air movement Abdomen: Soft, - - wound is clean/dry/intact, stoma functioning Current Medications Acetaminophen (Tylenol) 650 mg PO Q4H PRN PRN PRN Reason: Pain 1-10/10 or Fever Last Admin: 12/11/19 06:47 Dose: 650 mg Documented by: Bupropion HCl (Wellbutrin Xl) 300 mg PO DAILY [facility] Last Admin: 12/11/19 09:52 Dose: 300 mg Documented by: Famotidine (Pepcid) 20 mg PO DAILY [facility] Last Admin: 12/10/19 11:28 Dose: 20 mg Documented by: Fluoxetine HCl (Prozac) 60 mg PO DAILY [facility] Last Admin: 12/11/19 09:52 Dose: 60 mg Documented by: Ciprofloxacin (Cipro) 400 mg in 200 mls @ 200 mls/hr IV Q12 [facility] Last Admin: 12/11/19 09:51 Dose: 200 mls/hr Documented by: Metronidazole (Flagyl) 500 mg in 100 mls @ 100 mls/hr IV Q8 [facility] Last Infusion: 12/11/19 06:48 Dose: Infused Documented by: Lactated Ringer's () 1,000 mls @ 75 mls/hr IV .[id number] [facility] Last Infusion: 12/11/19 09:55 Dose: 0 mls/hr Documented by: Sodium Chloride () 250 mls @ 15 mls/hr IV .[id number] PRN PRN Reason: Saline Flush Last Infusion: 12/10/19 21:16 Dose: 0 mls/hr Documented by: Morphine Sulfate () 4 mg IV Q2H PRN PRN PRN Reason: Pain Score 4-10/10 Last Admin: 12/10/19 22:23 Dose: 4 mg Documented by: Ondansetron HCl (Zofran) 4 mg IV Q8H PRN PRN PRN Reason: NAUSEA Last Admin: 12/10/19 19:26 Dose: 4 mg Documented by: Oxycodone HCl (Oxyir) 5 mg PO Q4H PRN PRN PRN Reason: Pain Score 1-7/10 Last Admin: 12/11/19 06:47 Dose: 5 mg Documented by: Sodium Chloride () 10 - 40 ml IV UD PRN PRN Reason: SALINE FLUSH Last Admin: 12/11/19 06:47 Dose: 10 ml Documented by: Medical Necessity - Tobacco Use Smoking Status: Never smoker Tobacco Use: Non-smoker Assessment/Plan All Active Problems (Last Reviewed 11/09/17 @ 08:31 by Irene Jaime) Pneumoperitoneum (Acute) Small bowel obstruction (Acute) Diverticulitis (Acute) IMPRESSION: POD#5 s/p sigmoid resection, creation of end descending colostomy, Dinh's PLAN: regular diet may be ready for discharge later today
[2019-12-11] MEDS: Famotidine 20 MG Tablet PO (11:01)
--- NOTE | 2019-12-11 11:38 | PCM.DC.GS ---
Discharge Diet: No Restrictions Discharge Activity: Return to Normal Activity, May not drive while taking narcotic pain medications. Lifting Restrictions: no lifting greater than 10 pounds for one month Call your doctor if your incision/area has: Continuous Slow Oozing, Foul Smelling Discharge Call your doctor if you observe: Fever of 101 or Higher Additional Dressing/Incision Instructions:: May shower. do not soak - no tub baths/swimming Allergies/Adverse Reactions: Allergies No Known Allergies Allergy (Unverified 12/06/19 09:00) Medications to take at Discharge cetirizine 10 mg tablet 10 mg PO QDAY 11/09/17 cholecalciferol (vitamin D3) 25 mcg (1,000 unit) capsule 1,000 unit PO ONCE 11/09/17 fluoxetine 60 mg tablet 60 mg PO QDAY 11/09/17 Ascorbic Acid [Vitamin C] 1,000 mg PO DAILY 12/06/19 Bupropion HCl [Wellbutrin Xl] 300 mg PO DAILY 12/06/19 Multivitamin [Multiple Vitamins] 1 ea PO DAILY 12/06/19 Ciprofloxacin [Cipro] 500 mg PO BID 3 Days #6 tab 12/11/19 Oxycodone [Oxyir] 5 mg PO Q6H PRN PRN 5 Days #20 tablet 12/11/19 metroNIDAZOLE [Flagyl] 500 mg PO Q8H 3 Days #9 tab 12/11/19 The following prescriptions were given: Ciprofloxacin [Cipro] 500 mg PO BID 3 Days #6 tab Transmission Status: Pending to [facility] metroNIDAZOLE [Flagyl] 500 mg PO Q8H 3 Days #9 tab Transmission Status: Pending to [facility] Oxycodone [Oxyir] 5 mg PO Q6H PRN PRN 5 Days #20 tablet PRN Reason: Pain Score 6-10/10 Transmission Status: Sent to [facility] Primary Care Physician: Javid Yarbrough MD [Primary Care Provider] - Test Results: Test results from this visit will be discussed in further detail at your follow-up appointment, if applicable. Please Follow Up With: Ananya Rain MD - call When: to be seen in about a week, call for date and time, thank you
--- NOTE | 2019-12-11 13:32 | NURSING ---
Pt states he is feeling well and is hoping to go home later today. pt had talked with ex and both feel comfortable with stoma care. denies further needs or questions at this time. aware to call if needs arise.
--- NOTE | 2019-12-23 17:01 | DS.PCM_ITS ---
Discharge Summary Date of Admission: 12/06/19 Date of Discharge: 12/11/19 Summary: Derrick Varela is a 39 y/o WM who presented to ED on 12/06/19 with findings of abdominal pain, perforated viscus on CT scan and leukocytosis. Underwent urgent surgery on 12/06/2019 with findings of perforated sigmoid d iverticulitis. Underwent sigmoid resection, Dinh's procedure and creation of end descending colostomy. Post operative recovery unremarkable and patient discharged to home on POD#5 - tolerating regular diet with functioning stoma. Diagnosis: perforated sigmoid diverticulitis - Physical Exam Vitals/I&O's: Vital Signs Temp Pulse Resp BP Pulse Ox 97.8 F 78 18 137/91 H 98 12/11/19 08:35 12/11/19 08:35 12/11/19 08:35 12/11/19 08:35 12/11/19 08:35 Oxygen Flow Rate (L/min) 2 Oxygen Delivery Method Room Air Weight: 110 kg Body Mass Index (BMI) 32.8
== END 2019-12-11 13:20 | disposition home or self-care (01) | DRG 330 ==
LOC: ED 11:29 → PCU 12-07 07:16
PROVIDERS: Admitting Provider Surgery; Emergency Provider Physician Assistant Medical; PCP Family Medicine; Visit Provider Surgery
PROC: 0DTN4ZZ Resection of Sigmoid Colon, Percutaneous Endoscopic Approach (ICD-10-PCS; CPT 49320; principal; 2019-12-06 12:30)
DX: K57.20 Diverticulitis of large intestine with perforation and abscess without bleeding (principal); K56.690 Other partial intestinal obstruction; K66.8 Other specified disorders of peritoneum; Z53.31 Laparoscopic surgical procedure converted to open procedure; F32.9 Major depressive disorder, single episode, unspecified; F41.9 Anxiety disorder, unspecified; R33.9 Retention of urine, unspecified
CPT/HCPCS: 36415; 74018; 74177; 80048; 80053; 81001; 82962; 83690; 85025; 88307; 97802; 97803; 99251; 99284; J7030; J7050; J7120; Q9967; A4216; G0463; J0744; J2405

== ENCOUNTER 2020-10-18 09:21 | Day surgery (SDC) | payer OTHER, SELFPAY ==
[2020-10-04 14:24] VITALS: BMI 32.5
[2020-10-18] MEDS: Lactated Ringers 1,000 ML 100 ML IV (10:00)
[2020-10-18 10:03] VITALS: BP 140/78; PULSE 85; RESP 16; TEMP 36.6; O2SAT 95; BMI 32.2
--- NOTE | 2020-10-18 10:18 | PCM.HP.BLA ---
Problem List (1) H/O colectomy Status: Acute Comment: 12/10 perf diverticulitis (2) History of creation of ostomy Status: Acute Comment: 12/10 (3) Diverticulitis Status: Acute History and Physical Date of Admission: 10/18/20 Intake Visit Reasons: REVERSE COLOSTOMY Chief Complaint: discuss ostomy reversal Electronics Scale Tester Required: No Is patient in pain?: No Allergies No Known Allergies Allergy (Verified 10/04/20 14:25) Medications cetirizine 10 mg tablet 10 mg PO QDAY 11/09/17 [History Confirmed 10/04/20] cholecalciferol (vitamin D3) 25 mcg (1,000 unit) capsule 1,000 unit PO ONCE 11/09/17 [History Confirmed 10/04/20] fluoxetine 60 mg tablet 60 mg PO QDAY 11/09/17 [History Confirmed 10/04/20] Ascorbic Acid [Vitamin C] 1,000 mg PO DAILY 12/06/19 [History Confirmed 10/04/20] Bupropion HCl [Wellbutrin Xl] 300 mg PO DAILY 12/06/19 [History Confirmed 10/04/20] Multivitamin [Multiple Vitamins] 1 ea PO DAILY 12/06/19 [History Confirmed 10/04/20] PFS Medical History (Updated 10/04/20 @ 14:24 by Savannah Mujica) Anxiety (Acute) Pneumoperitoneum (Acute) Small bowel obstruction (Acute) Diverticulitis (Acute) Surgical History (Updated 10/04/20 @ 14:24 by Savannah Mujica) H/O colectomy (Acute) History of creation of ostomy (Acute) Social History (Updated 10/04/20 @ 16:[address] Juan Maoy MD) Smoking Status: Never smoker alcohol intake: former HPI HPI HPI: DANIEL YUSUF, is a 40 M who presents to the office today for surgical consultation regarding a left lower quadrant Alda procedure stoma. Patient is referred by Dr. Javid Yarbrough and a written complement surgical consult recommendations will return to him. 40-year-old gentleman. He was emergently hospitalized at the [facility] on December 06, 2019. CT evidence was consistent with a perforated viscus and leukocytosis on CT. Urgent surgery performed by Dr. Ananya Rain demonstrated perforated sigmoid diverticulitis. A sigmoid resection and Alda procedure with end descending colostomy was performed. He performed well postoperatively with a 5-day operative stay. The procedure was performed via an open technique. At the time of the diagnostic laparoscopy there was felt to be significant bout of purulence and debris almost as if coming from small bowel. Upon open exploration it became apparent that there were interloop collections but that it was actually a sigmoid perforation. The indurated small bowel was adjacent to it. There is no evidence of inflammatory small bowel disease. The segment of diseased bowel was removed. The descending colon was mobilized. Stoma was created. The Dinh bowel was transected with a TA 60. I do not see any marking stitches placed. The pathology demonstrated a 8 cm segment of bowel. Focal abscess formation noted. 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 He states he has not been exposed to COVID-19. He otherwise feels well. He had had no previous bouts of diverticulitis. He had a very remote colonoscopy. HPI HPI HPI: DANIEL YUSUF, is a 40 M who presents to the office today for ROS General General: No weight change, appetite, fatigue, colon cancer, breast cancer or weakness HEENT HEENT: No difficulty swallowing, eye injury, eye surgery, swollen glands or hoarseness Endo Endocrine: No thyroid disease, diabetes mellitus, thyroid cancer, Hair loss, heat intolerance or cold intolerance Skin Skin: No rash or changing moles Breast Breast: No left breast lump, right breast lump, nipple discharge, breast pain, abnormal mammogram, abnormal US or breast enlargement Musc Musculoskeletal: No back problems, arthritis, rheumatoid arthritis, gout or joint pain Cardio Cardiovascular: No murmur, pacemaker, heart disease, atrial fibrillation, high blood pressure, heart attack, heart stent, palpitations, shortness of breat with exertion or chest pain Psych Psychiatric: Yes depression and anxiety; no hearing voices Resp Respiratory: No shortness of breath, No sleep apnea, No cough, No COPD, No asthma, No emphysema, No wheezing Gastro Gastrointestinal: Yes abdominal pain, No nausea or vomiting, No diarrhea, No constipation, No blood in stool, Yes acid reflux, No hemorrhoids, No ulcers, No gallbladder problem, No black,tarry stools Srinivas Hematologic: No blood thinners, No blood disorders, No bleeding, No anemia, No blood clots Neuro Neurologic: No system reviewed and no additional complaints, except as docu, No as per HPI, No abnormal walking, No abnormal hearing, No abnormal movements, No abnormal speech, No behavioral changes, No burning sensations, No confusion, No seizure-like activity, No unsteadiness, No dizziness, No localized weakness, No frequent falls, No headache(s), No lack of coordination, No loss of vision, No memory loss, No numbness, No other visual disturbances, No radiating pain, No restless legs, No sensory deficit, No fainting, No tingling, No tremor(s), No weakness, No other Exam Const General: cooperative, healthy appearing, comfortable, no acute distress Nutritional Appearance: obese Orientation: alert, awake [facility] Head: normal to inspection Eyes General: appearance normal, both eyes and all related structures Chest Breast Palpation: No nipple discharge Resp Effort & Inspection: normal respiratory effort Auscultation: clear to auscultation bilaterally Cardio Rate: regular rate Rhythm: regular rhythm Heart Sounds: no murmurs GI Palpation: soft, no hepatosplenomegaly Auscultation: normal bowel sounds Other: Stoma left lower quadrant, well-healed midline incision Musc Cervical Spine: normal cervical lordosis Skin General: no rashes or lesions noted Neuro Cognition: normal cognition Extrem General: no calf tenderness Psych Affect: normal affect Assessment & Plan Problems 1. H/O colectomy Z90.49 2. Diverticulitis K57.92 Plan I recommended the patient a colonoscopy per stool and per rectum. I described the technique, benefit, risk and alternatives. He has had an opportunity to ask and have questions answered. We will schedule and proceed as noted. I offered him an attempt at a laparoscopic takedown of his and sigmoid colostomy. I have cautioned him that from the previous description there may be excessively adhesions. He might require conversion to a hand-assisted or an open approach. He might additionally require preoperative investigation with a barium enema per rectum. He is well aware however that this would require at least an overnight stay in the hospital. I would anticipate a tap block as well. I am not advising takedown of his colostomy at this time secondary to the Covid 19 pandemic and current surgeon. He is aware that we are likely waiting at least till December or January pending the course of Covid and vaccinations. He has had an opportunity to ask and have questions answered. We will schedule and proceed with the endoscopy to assess his current situation. I appreciate the opportunity of assisting with his surgical care Copy: Dr. Javid Mayo M.D., F.A.C.S. Coding Level of Care Code 48203 Diagnoses H/O colectomy Z90.49 Diverticulitis K57.92 I have re-examined the patient. There are no clinical changes since date of exam. Procedure Criteria Procedure Type: Elective COVID Risk Discussion: The surgeon/proceduralist and patient have discussed in detail the risk of exposure to and/or potential harm posed by the COVID-19 virus with having a surgery/procedure at this time versus the risk of delaying the surgery/procedure. It is not possible to know either the risk of delaying the surgery or procedure or chance of getting an infection with perfect accuracy, but a joint decision was made between the patient and the surgeon/proceduralist to proceed at this time with the scheduled surgery/procedure as indicated on the consent form.
--- NOTE | 2020-10-18 10:30 | COLBX_PTH ---
PATIENT: DANIEL YUSUF LOC: EN U#:[id number] AGE/SX: 40/M ROOM: RE10/18/[address]: Dr. Juan Mayo MD : 1980 BED: DIS: 10/18/2020 SPEC #: [id number] RECD: 10/18/20 11:42 STATUS: IRVIN KENNY #: [id number] EDWIN: 10/18/20 10:[address]: Juan Mayo DEPT: SURGICAL PATHOLOGY RECD BY: Junior Darnell ENTERED: 10/18/20 12:13 SP TYPE: COLON BX OTHR DR: Dr. Javid Yarbrough MD Tissues: A - Rectum, NOS B - Gastric mucous membrane Procedures: Surgery Specimen Level IV HEADER OPERATION: Colonoscopy (MAC) PRE-OP DIAGNOSIS: History of colectomy, diverticulitis TISSUE SUBMITTED: A - Rectal polyp biopsy, B - Hepatic flexure polyp biopsy MICROSCOPIC DIAGNOSIS A. Rectal polyp, biopsy: Tubular adenoma. B. Colonic polyp at hepatic flexure, biopsy: Fragments of tubular adenoma. AM:anabel 10/19/20 MICROSCOPIC DESCRIPTION Slides are reviewed. GROSS DESCRIPTION A - Received in fixative is one container labeled with the patient's name and designated rectal polyp biopsy. The specimen consists of one irregular fragment of light mancera soft tissue that measures 0.6 x 0.5 x 0.1 cm. The specimen is totally submitted in one cassette. B - Received in fixative is one container labeled with the patient's name and designated hepatic flexure polyp biopsy. The specimen consists of multiple irregular fragments of light mancera soft tissue that in aggregate measure 1.5 x 1 x 0.1 cm. The specimen is totally submitted in one cassette. / AM:anabel 10/18/20 TC:5 [facility]: [id number] x2
[2020-10-18 10:56] VITALS: BP 108/58; BP 140/78; PULSE 91; RESP 18; TEMP 36.1; O2SAT 92
--- NOTE | 2020-10-18 10:58 | OP.CCLET_ITS ---
10/18/2020 Javid Yarbrough MD [address] [place] [address] Re : Colonoscopy procedure for Derrick Varela Dear Dr. Yarbrough This procedure was performed on Sunday, October 18, 2020. My impressions and recommendations are as follows: Impressions : - One 4 mm polyp in the rectum, removed with a cold biopsy forceps. Resected and retrieved. - One 6 mm polyp at the hepatic flexure, removed with a cold biopsy forceps. Resected and retrieved. - Diverticulosis in the sigmoid colon. Long Dinh pouch 30cm from anal verge with scope per anus Intact proximal colon per stoma left lower quadrant. Recommendations : - Discharge patient to home. - Resume previous diet. - Continue present medications. - Repeat colonoscopy at age 52 for screening purposes. - Return to my office in 2 months. My findings are described in the full procedure note, which is enclosed. If I can be of further assistance, please feel free to contact me at Doctor phone number(s): Work: . Sincerely, Juan Mayo MD 10/18/2020 10:58:05 AM This report has been signed electronically.
--- NOTE | 2020-10-18 10:58 | OP.COLON_ITS ---
Patient Name: Derrick Varela Procedure Date: 10/18/2020 10:26 AM Date of : 1980 Age: 40 Procedure: Colonoscopy Indications: Diverticulitis Providers: Juan Mayo MD Referring MD: Juan Mayo MD Medicines: See the Anesthesia note for documentation of the administered medications Patient Profile: Last Colonoscopy: none. The patient's first colonoscopy is today. Complications: No immediate complications. Procedure: Pre-Anesthesia Assessment: - Prior to the procedure, a History and Physical was performed, and patient medications and allergies were reviewed. The patient's tolerance of previous anesthesia was also reviewed. The risks and benefits of the procedure and the sedation options and risks were discussed with the patient. All questions were answered, and informed consent was obtained. Prior Anticoagulants: The patient has taken no previous anticoagulant or antiplatelet agents. ASA Grade Assessment: II - A patient with mild systemic disease. After reviewing the risks and benefits, the patient was deemed in satisfactory condition to undergo the procedure. After I obtained informed consent, the scope was passed under direct vision. Throughout the procedure, the patient's blood pressure, pulse, and oxygen saturations were monitored continuously. The pediatric colonoscope was introduced through the anus and advanced to the cecum, identified by appendiceal orifice and ileocecal valve. The colonoscopy was performed without difficulty. The patient tolerated the procedure well. The quality of the bowel preparation was good. The ileocecal valve and the appendiceal orifice were photographed. Colonoscopy per rectum and separately per left lower quadrant stoma Scope In: 10:34:17 AM Scope Withdrawal Time 0 hours 9 minutes 7 seconds Scope Out: 10:50:47 AM Total Procedure Duration Time 0 hours 16 minutes 30 seconds Findings: The perianal and digital rectal examinations were normal. A 4 mm polyp was found in the rectum. The polyp was sessile. The polyp was removed with a cold biopsy forceps. Resection and retrieval were complete. A 6 mm polyp was found in the hepatic flexure. The polyp was sessile. The polyp was removed with a cold biopsy forceps. Resection and retrieval were complete. Multiple diverticula were found in the sigmoid colon. Impression: - One 4 mm polyp in the rectum, removed with a cold biopsy forceps. Resected and retrieved. - One 6 mm polyp at the hepatic flexure, removed with a cold biopsy forceps. Resected and retrieved. - Diverticulosis in the sigmoid colon. Long Dinh pouch 30cm from anal verge with scope per anus Intact proximal colon per stoma left lower quadrant. Recommendation: - Discharge patient to home. - Resume previous diet. - Continue present medications. - Repeat colonoscopy at age 52 for screening purposes. - Return to my office in 2 months. Procedure Code(s): --- Professional --- 09031, Colonoscopy, flexible; with biopsy, single or multiple Diagnosis Code(s): --- Professional --- K62.1, Rectal polyp D12.3, Benign neoplasm of transverse colon (hepatic flexure or splenic flexure) K57.32, Diverticulitis of large intestine without perforation or abscess without bleeding K57.30, Diverticulosis of large intestine without perforation or abscess without bleeding CPT copyright 2017 [employer]. All rights reserved. The codes documented in this report are preliminary and upon chemical weigher review may be revised to meet current compliance requirements. Juan Mayo MD 10/18/2020 10:58:05 AM This report has been signed electronically. Number of Addenda: 0 Note Initiated On: 10/18/2020 10:26 AM
[2020-10-18 11:00] VITALS: BP 101/67; BP 140/78; PULSE 90; RESP 16; O2SAT 95
[2020-10-18 11:05] VITALS: BP 140/78; BP 99/71; PULSE 86; RESP 16; O2SAT 93
[2020-10-18 11:11] VITALS: BP 110/78; BP 140/78; PULSE 85; RESP 16; TEMP 36.5; O2SAT 96
[2020-10-18 11:28] VITALS: BP 140/78
== END 2020-10-18 11:37 | disposition home or self-care (01) ==
LOC: EN 09:23 → AC 09:24
PROVIDERS: PCP Family Medicine; Referring Provider Surgery; Visit Provider Surgery
PROC: 0DJD8ZZ Inspection of Lower Intestinal Tract, Via Natural or Artificial Opening Endoscopic (ICD-10-PCS; CPT 45378; principal; 2020-10-18 10:25)
DX: K57.32 Diverticulitis of large intestine without perforation or abscess without bleeding (principal); K57.30 Diverticulosis of large intestine without perforation or abscess without bleeding; D12.8 Benign neoplasm of rectum; D12.3 Benign neoplasm of transverse colon; F32.9 Major depressive disorder, single episode, unspecified; F41.9 Anxiety disorder, unspecified; E66.9 Obesity, unspecified; Z90.49 Acquired absence of other specified parts of digestive tract; Z20.828 Contact with and (suspected) exposure to other viral communicable diseases
CPT/HCPCS: 45380; 87426; 88305; C9803; J7120

== ENCOUNTER 2020-11-11 13:48 | Outpatient (RCR) | payer OTHER, SELFPAY ==
[2020-11-07 07:40] VITALS: BMI 32.8
== END 2020-11-11 23:59 ==
LOC: IMMUN 13:48
PROVIDERS: PCP Family Medicine; Visit Provider Family Medicine
DX: Z23 Encounter for immunization (principal)
CPT/HCPCS: 0011A; 0012A; 91301

== ENCOUNTER 2021-01-30 05:18 | Inpatient (IN) | payer OTHER, SELFPAY ==
[2020-11-18 08:52] VITALS: BMI 33.1
--- NOTE | 2021-01-23 10:33 | NURSING ---
PATIENT HAD MODERNA VACCINE X2 LAST DOSE 12/09/20
--- NOTE | 2021-01-23 12:10 | EKG12_ITS ---
Test Reason : PRE OP Blood Pressure : / mmHG Vent. Rate : 070 BPM Atrial Rate : 070 BPM P-R Int : 142 ms QRS Dur : 076 ms QT Int : 408 ms P-R-T Axes : 042 039 036 degrees QTc Int : 440 ms Normal sinus rhythm Normal ECG Confirmed by TINO CORRIGAN, GAURI ([id number]), material expeditor GAYLE MATHEWS ([id number]) on 01/25/2021 7:36:15 AM Referred By: Juan Mayo Confirmed By:GAURI JIMÉNEZ MD
[2021-01-23 12:47] VITALS: BMI 34.2
[2021-01-23 13:31] LABS: Hematocrit 43.7 % (40-54); Hemoglobin 14.1 g/dL (13.0-16.5); Mean Corp Hgb Conc 32.3 g/dL (32-36); Mean Corpuscular Hgb 27.9 pg (27.0-32.0); Mean Corpuscular Volume 86.5 fL (80-94); Mean Platelet Vol. 9.4 fl (6.2-12.0); Platelet Count 281 K/mm3 (150-450); RBC Distribution Width CV 14.5 % (11.6-14.6); RBC Distribution Width SD 45.9 fl (35.1-43.9); Red Blood Count 5.05 M/mm3 (4.6-6.2); White Blood Count 7.9 K/mm3 (4.4-11.0)
[2021-01-23 13:53] LABS: Magnesium 2.2 mg/dL (1.6-2.6)
[2021-01-23 14:06] LABS: Anion Gap 6 (5-15); BUN 8 mg/dL (7-18); BUN/Creat Ratio 11.9 RATIO (10-20); Calcium,Total 8.8 mg/dL (8.5-10.1); Chloride 105 mmol/L (98-107); Creatinine, Serum 0.67 mg/dL (0.70-1.30); EST Glomerular Filtration Rate 140 mL/min (>60); Est Glom Filt Rate - Afr Amer 169 mL/min (>60); Glucose 123 mg/dL (74-106); Potassium 3.4 mmol/L (3.5-5.1); Sodium Level 136 mmol/L (136-145)
[2021-01-30] VITALS (12 sets, daily range): BP systolic 94–139; BP diastolic 50–95; PULSE 88–104; RESP 14–20; TEMP 36.6–36.8; O2SAT 92–100; BMI 33.2
--- NOTE | 2021-01-30 06:01 | PCM.HP.BLA ---
Problem List (1) History of creation of ostomy Status: Acute Comment: 12/10 (2) H/O colectomy Status: Acute Comment: 12/10 perf diverticulitis History and Physical Date of Admission: 01/30/21 ADDENDUM by RENE Diaz on 01/23/21 at 1456 Addendum entered and electronically signed by Fely DODD PA-C 01/23/21 14:56: Intake Chief Complaint: Update H&P Allergies No Known Allergies Allergy (Verified 01/23/21 12:47) Medications fluoxetine 60 mg tablet 60 mg PO QDAY 11/09/17 [History Confirmed 01/23/21] Bupropion HCl [Wellbutrin Xl] 300 mg PO DAILY 12/06/19 [History Confirmed 01/23/21] Fluticasone 0.05% [Flonase Nasal [place]] 1 spray NASAL DAILY 01/23/21 [History Confirmed 01/23/21] Omeprazole [Prilosec] 20 mg PO QHS 01/23/21 [History Confirmed 01/23/21] metronidazole 500 mg tablet 500 mg PO .COMPLEX #6 tablet 01/23/21 [Rx Confirmed 01/23/21] neomycin 500 mg tablet 500 mg PO .COMPLEX #6 tablet 01/23/21 [Rx Confirmed 01/23/21] Assessment & Plan Problems 1. H/O colectomy Z90.49 12/10 perf diverticulitis 2. Diverticulitis K57.92 Plan - RENE Collins Dr. will plan to perform a laparoscopic takedown of sigmoid colostomy with extensive lysis of adhesion. Procedure details, risks and benefits have been reviewed. Patient verbally understands and agrees with the plan. He was provided ERAS instructions which have been reviewed. Pre-op antibiotics were sent. He has had the opportunity to ask and have questions answered. Patient verbally understands and agrees with the plan. Patient does request if a Khan is placed on the floor or outside of surgery that Urojet is used. He would also like his antidepressant medication restarted as soon as possible after surgery so he does not have withdraw symptoms. Medications New: metronidazole 500 mg PO Take 2 (two) tablets at 1300, 1500, 2300 6 tabs 0RF neomycin Take two (2) 500 mg tablets PO at 1300, 1500, 2300 6 tabs 0RF pre-op antibiotics 01/23/21 1456 <Electronically signed by Fely DODD PA-C> Date Fely Diaz PA-C cc: Dr. Juan Mayo MD ~* Signed Intake Vital Signs 01/23/21 Height 6 ft 01/23/21 Weight: 252 lb 2 oz 01/23/21 BMI 34.2 01/23/21 BP 135/89 H 01/23/21 Blood Pressure Location Rt brachial 01/23/21 Position Sitting 01/23/21 Respiration 16 01/23/21 Pulse 76 01/23/21 Pulse Source Monitor 01/23/21 Temp 97.7 F L 01/23/21 Temp Source Temporal 01/23/21 Pulse Oximetry (%) 99 01/23/21 Oxygen Delivery Method room air Intake Visit Reasons: update h&p ostomy reversal 01/30 Chief Complaint: Update H&P [employer] Consultant Required: No Is patient in pain?: No Allergies No Known Allergies Allergy (Verified 01/23/21 12:47) Medications fluoxetine 60 mg tablet 60 mg PO QDAY 11/09/17 [History Confirmed 01/23/21] Bupropion HCl [Wellbutrin Xl] 300 mg PO DAILY 12/06/19 [History Confirmed 01/23/21] Fluticasone 0.05% [Flonase Nasal [place]] 1 spray NASAL DAILY 01/23/21 [History Confirmed 01/23/21] Omeprazole [Prilosec] 20 mg PO QHS 01/23/21 [History Confirmed 01/23/21] metronidazole 500 mg tablet 500 mg PO .COMPLEX #6 tablet 01/23/21 [Rx Confirmed 01/23/21] neomycin 500 mg tablet 500 mg PO .COMPLEX #6 tablet 01/23/21 [Rx Confirmed 01/23/21] [facility] Medical History Anxiety (Acute) Pneumoperitoneum (Acute) Small bowel obstruction (Acute) Diverticulitis (Acute) Surgical History H/O colectomy (Acute) History of creation of ostomy (Acute) Social History (Updated 01/23/21 @ 13:29 by Fely DODD PA-C) Smoking Status: Never smoker alcohol intake: former HPI HPI HPI: DANIEL YUSUF, is a 40 M who presents to the office today for HPI HPI Surgical H&P: Yes HPI: DANIEL YUSUF, is a 40 M who presents to the office today for an update history and physical. Patient denies any recent hospitalizations or illnesses. Patient states at his last hospitalization, his antidepressant medication was not restarted right away and he noted withdraw symptoms. Patient denies previous complications with anesthesia. He denies cardiac and pulmonary history. Patient's previous history per Dr. Mayo: DANIEL YUSUF is a 40 M who presents to the office today for surgical consultation regarding a left lower quadrant Alda procedure stoma. Patient is referred by Dr. Javid Yarbrough and a written complement surgical consult recommendations will return to him. 40-year-old gentleman. He was emergently hospitalized at the [facility] on December 06, 2019. CT evidence was consistent with a perforated viscus and leukocytosis on CT. Urgent surgery performed by Dr. Ananya Rain demonstrated perforated sigmoid diverticulitis. A sigmoid resection and Alda procedure with end descending colostomy was performed. He performed well postoperatively with a 5-day operative stay. The procedure was performed via an open technique. At the time of the diagnostic laparoscopy there was felt to be significant bout of purulence and debris almost as if coming from small bowel. Upon open exploration it became apparent that there were interloop collections but that it was actually a sigmoid perforation. The indurated small bowel was adjacent to it. There is no evidence of inflammatory small bowel disease. The segment of diseased bowel was removed. The descending colon was mobilized. Stoma was created. The Dinh bowel was transected with a TA 60. I do not see any marking stitches placed. The pathology demonstrated a 8 cm segment of bowel. Focal abscess formation noted. 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 He states he has not been exposed to COVID-19. He otherwise feels well. He had had no previous bouts of diverticulitis. He had a very remote colonoscopy. Findings: The perianal and digital rectal examinations were normal. A 4 mm polyp was found in the rectum. The polyp was sessile. The polyp was removed with a cold biopsy forceps. Resection and retrieval were complete. A 6 mm polyp was found in the hepatic flexure. The polyp was sessile. The polyp was removed with a cold biopsy forceps. Resection and retrieval were complete. Multiple diverticula were found in the sigmoid colon. Impression: - One 4 mm polyp in the rectum, removed with a cold biopsy forceps. Resected and retrieved. - One 6 mm polyp at the hepatic flexure, removed with a cold biopsy forceps. Resected and retrieved. - Diverticulosis in the sigmoid colon. Long Dinh pouch 30cm from anal verge with scope per anus Intact proximal colon per stoma left lower quadrant. Recommendation: - Discharge patient to home. - Resume previous diet. - Continue present medications. - Repeat colonoscopy at age 52 for screening purposes. - Return to my office in 2 months. Pathology: Tubular adenomas x2. Recommend follow-up colonoscopy 5 years.As soon as the COVID-19 curve flattens we will proceed with takedown of his end sigmoid colostomy.Juan Mayo M.D., F.A.C.S. ROS General General: No weight change, appetite, fatigue, colon cancer, breast cancer or weakness HEENT HEENT: No difficulty swallowing, eye injury, eye surgery, swollen glands or hoarseness Endo Endocrine: No thyroid disease, diabetes mellitus, thyroid cancer, Hair loss, heat intolerance or cold intolerance Skin Skin: No rash or changing moles Breast Breast: No left breast lump, right breast lump, nipple discharge, breast pain, abnormal mammogram, abnormal US or breast enlargement Musc Musculoskeletal: No back problems, arthritis, rheumatoid arthritis, gout or joint pain Cardio Cardiovascular: No murmur, pacemaker, heart disease, atrial fibrillation, high blood pressure, heart attack, heart stent, palpitations, shortness of breat with exertion or chest pain Psych Psychiatric: Yes depression and anxiety; no hearing voices Resp Respiratory: No shortness of breath, No sleep apnea, No cough, No COPD, No asthma, No emphysema, No wheezing Gastro Gastrointestinal: Yes abdominal pain, No nausea or vomiting, No diarrhea, No constipation, No blood in stool, Yes acid reflux, No hemorrhoids, No ulcers, No gallbladder problem, No black,tarry stools Srinivas Hematologic: No blood thinners, No blood disorders, No bleeding, No anemia, No blood clots Neuro Neurologic: No system reviewed and no additional complaints, except as docu, No as per HPI, No abnormal walking, No abnormal hearing, No abnormal movements, No abnormal speech, No behavioral changes, No burning sensations, No confusion, No seizure-like activity, No unsteadiness, No dizziness, No localized weakness, No frequent falls, No headache(s), No lack of coordination, No loss of vision, No memory loss, No numbness, No other visual disturbances, No radiating pain, No restless legs, No sensory deficit, No fainting, No tingling, No tremor(s), No weakness, No other Exam Const General: cooperative, healthy appearing, comfortable, no acute distress HENMT Head: normal to inspection Eyes General: appearance normal, both eyes and all related structures Neck Neck: normal visual inspection Neck mass: No Chest Breast Palpation: No nipple discharge Resp Effort & Inspection: normal respiratory effort Auscultation: clear to auscultation bilaterally Cardio Rate: regular rate Rhythm: regular rhythm Heart Sounds: no murmurs GI Inspection: normal to inspection Palpation: soft Auscultation: normal bowel sounds Other: Stoma left lower quadrant. Well healed midline incision Musc Cervical Spine: normal cervical lordosis Skin General: no rashes or lesions noted Neuro General: no focal motor deficits, CN's II-XI intact bilaterally Extrem General: normal to inspection Psych Appearance: grossly normal Affect: normal affect Assessment & Plan Problems 1. H/O colectomy Z90.49 12/10 perf diverticulitis 2. Diverticulitis K57.[address] Mayo will plan to perform a laparoscopic takedown of sigmoid colostomy with extensive lysis of adhesion. Procedure details, risks and benefits have been reviewed. Patient verbally understands and agrees with the plan. He was provided ERAS instructions which have been reviewed. Pre-op antibiotics were sent. He has had the opportunity to ask and have questions answered. Patient verbally understands and agrees with the plan. Patient does request if a Khan is placed on the floor or outside of surgery that Urojet is used. He would also like his antidepressant medication restarted as soon as possible after surgery so he does not have withdraw symptoms. Medications New: metronidazole 500 mg PO Take 2 (two) tablets at 1300, 1500, 2300 6 tabs 0RF neomycin Take two (2) 500 mg tablets PO at 1300, 1500, 2300 6 tabs 0RF pre-op antibiotics Coding Level of Care Code No Charge Diagnoses H/O colectomy Z90.49 Diverticulitis K57.92 Comment Update H&P I have re-examined the patient. There are no clinical changes since date of exam. Procedure Criteria Procedure Type: Elective COVID Risk Discussion: The surgeon/proceduralist and patient have discussed in detail the risk of exposure to and/or potential harm posed by the COVID-19 virus with having a surgery/procedure at this time versus the risk of delaying the surgery/procedure. It is not possible to know either the risk of delaying the surgery or procedure or chance of getting an infection with perfect accuracy, but a joint decision was made between the patient and the surgeon/proceduralist to proceed at this time with the scheduled surgery/procedure as indicated on the consent form.
[2021-01-30] MEDS: Acetaminophen 500 MG Tablet 1000 MG PO ×3 (06:10→18:45)
[2021-01-30] MEDS: Gabapentin 600 MG Tablet PO (06:10)
[2021-01-30] MEDS: Lactated Ringers 1,000 ML 40 ML IV ×2 (06:24→09:15)
[2021-01-30 06:35] LABS: Bedside Glucose 137 mg/dL (70-110)
[2021-01-30] MEDS: Lubricating Jelly 60 GM Tube 30 GM TOPICAL (07:23)
--- NOTE | 2021-01-30 07:30 | COL_PTH ---
PATIENT: DANIEL YUSUF LOC: MS3 U#:[id number] AGE/SX: 40/M ROOM: HI318 RE01/30/[address]: Dr. Juan Mayo MD : 1980 BED: 1 DIS: 01/31/2021 SPEC #: [id number] RECD: 01/30/21 11:10 STATUS: IRVIN COX #: [id number] EDWIN: 01/30/21 07:[address]: Juan Mayo DEPT: SURGICAL PATHOLOGY RECD BY: Ann Titus ENTERED: 01/30/21 13:06 SP TYPE: COLON OTHR DR: Dr. Javid Yarbrough MD Tissues: A - Colon, NOS B - Colon, NOS C - Colon Donuts D - Colon Donuts Procedures: Surgery Specimen Level III Surgery Specimen Level V HEADER OPERATION: ERAS, laparoscopic sigmoid, lysis of adhesions PRE-OP DIAGNOSIS: History of creation of ostomy; history of colectomy TISSUE SUBMITTED: A - Sigmoid colon, B - Stoma, C - Rectal donut, D - Sigmoid donut MICROSCOPIC DIAGNOSIS A. Sigmoid colon, segmental colectomy: Diverticular disease of colon. Margins of excision with no significant pathologic change. B. Stoma, takedown colostomy: Mild chronic inflammation. C. Rectal donut, excision: No pathologic change. D. Distal sigmoid colon donut, excision: No pathologic change. AM:anabel 02/01/2021 MICROSCOPIC DESCRIPTION Slides are reviewed. GROSS DESCRIPTION A - Received in fixative is one container labeled with the patient's name and designated sigmoid colon. The specimen consists of a segment of colon with attached pericolonic adipose tissue measuring 11 cm in length. Both resection margins are stapled. No mucosal lesion is identified. More dictation will follow after fixation. The lumen contains a small amount of fecal material. / SJ: 01/30/21 Sections reveal a few diverticula. No obviously ruptured diverticula are noted. Sections of pericolonic adipose tissue do not reveal any obviously enlarged lymph node. Vice Investigator sections are submitted in five cassettes as follows: 1 - resection margin, 2-4 - diverticula, 5 - pericolonic adipose tissue. / SJ: 01/31/21 B - Received in fixative is one container labeled with the patient's name and designated stoma. The specimen consists of a portion of colon with attached piece of skin at one end of the specimen consistent with colostomy stoma. The segment of colon measures 3.5 cm in length and the pedicle of attached skin at one edge measures 0.5 cm in width. No mucosal lesion is identified. Sections will be submitted after fixation. / SJ:anabel 01/30/21 Vice Investigator sections are submitted in three cassettes. / :anabel 01/31/21 C - Received in fixative is one container labeled with the patient's name and designated rectal donut. The specimen consists of a donut-shaped piece of colonic tissue measuring 2 x 1.5 x 1.5 cm. Multiple catarina are noted. Vice Investigator sections are submitted in one cassette. / :anabel 01/30/21 D - Received in fixative is one container labeled with the patient's name and designated sigmoid donut. The specimen consists of a donut-shaped piece of colonic tissue measuring 1 x 1 x 0.5 cm. Multiple sutures are noted. Vice Investigator sections are submitted in one cassette. / SJ:anabel 01/30/21 TC:3 CPT: 44386, 31754 x3
[2021-01-30] MEDS: Lidocaine/D5W 2,000 MG/250 ML IV.SOLN 33.3 MG IV (07:48)
[2021-01-30] MEDS: Lidocaine 2% (20 ml mdv) 20 ML Vial (10:50)
--- NOTE | 2021-01-30 11:03 | OP.PCM_ITS ---
Problem List (1) History of creation of ostomy Status: Acute Comment: 12/10 (2) H/O colectomy Status: Acute Comment: 12/10 perf diverticulitis (3) Candidiasis Status: Acute Report of Operation Date of Procedure: 01/30/21 Pre-Operative Diagnosis: History of perforated diverticulitis with end sigmoid colostomy and Alda pouch. Low abdominal wall and groin crease candidiasis Post-Operative Diagnosis: Same plus intra-abdominal adhesions and long distal sigmoid remnant Surgery/Procedure Performed:: Laparoscopic lysis of adhesions and laparoscopic sigmoid colectomy with resection of remnant mid to distal sigmoid. Takedown of end sigmoid colostomy and primary anastomosis. Laparoscopic bilateral transabdominis plane block Description of Surgical Findings:: Timeout and informed consent was obtained. 40-year-old gentleman was taken to the operating place upon the table underwent general endotracheal intubation anesthesia. Cefotetan 2 g were placed intravenously. Patient was then placed in a low lithotomy position. The abdomen was sterilely prepped and draped after Khan catheter was inserted. The perineum was prepped. Ioban draping was used. The left lower quadrant stoma had previously been occluded by using a running 0 chromic suture. A transverse incision was made at the stoma completely excising the stoma and then tedious sharp electrocautery section was used to completely release the stoma from the fascia. Access was gained to the abdomen and sharp dissection and blunt dissection was required to free the stoma. It had been prepped with Betadine. It was then dropped within the abdomen. The fascia was partially approximated with 0 Nurolon sutures. An Shane catheter was inserted the abdomen was insufflated with CO2 to a pressure of 10 mmHg pressure. 10 mm laparoscope inserted. There were adhesions of the proximal sigmoid colon to the sidewall as part of the previous end sigmoid colostomy. Fortunately there were no small bowel adhesions. There were minimal left pelvic sidewall adhesions. Two 5 mm ports were placed under laparoscopic visualization the right lower quadrant. Local was instilled which included a solution of Exparel mixed with Marcaine and diluted with saline. Then switching to a 5 mm 30 degrees scope with the patient in Trendelenburg position the adhesions holding the proximal sigmoid colon were lysed. This allowed for much better mobilization of the proximal sigmoid. The distal sigmoid was inspected and there was a very long remnant. This has been anticipated on the preprocedural colonoscopy. I used a Enseal device to identify the previous transection staple line of the long Alda pouch and did a more complete sigmoid colectomy extending down to the peritoneal reflection. Having achieved that I used a gold load on the 60 mm [place] stapler. I had upstaged to the right lower quadrant 5 mm port to a 12 mm port. Very nice staple line was achieved. The bowel segment was then exited through the stoma site and left lower quadrant. I did have to release several of the stitches. A wound protector was placed. We then exited the sigmoid colon. Portion of the sigmoid that had been used for the colostomy was sharply transected using a Igor clamp. There was very excellent blood supply to the remaining more proximal portion. A 2-0 Prolene whip suture was placed in that end of the bowel and then a 29 mm anvil was inserted. It was nicely secured. He was stabbed with Betadine drop back with the abdomen. The wound protector was used to occlude flow. The pelvis was inspected it was irrigated and aspirated free. The rectum was then irrigated with dilute Betadine solution. Sizers were inserted then the 29 mm stapler was inserted and it was easily seen at the end of the rectal staple line rectosigmoid staple line. The car was then under visualization exited right at the staple line. The anvil was then mated to it. The 2 were approximated. The device was then secured and then fired. It was then carefully removed the donuts were inspected and noted to be intact. Hemostasis was intact. Fluid was placed in the pelvis and the rigid sigmoidoscopy exam was performed. The staple line was hemostatic and intact. Air was insufflated with absolutely no air leak. The air was allowed to escape per rectum. The pelvis was irrigated. Fortunately the small bowel appeared to be generally free throughout. There were no small bowel adhesions in the pelvis. No further dissection was required. The stomach had been deflated using a temporary OG tube. I then performed a bilateral transversus abdominis plane block using the Exparel/Marcaine/saline solution. This was done under laparoscopic visualization. Very generous left-sided locking was performed as this was a side of the stoma. Having achieved that then the right lower quadrant 12 mm port trocar site was closed using a grainy needle and [id number] suture of 0 Vicryl. The abdomen is now allowed to deflate through an antiviral valve. The stoma site in the left lower quadrant fascia was closed with simple sutures of 0 Nurolon. There was only one layer that could be deciphered this was carefully approximated. At tissue was then anesthetized with the same solution. The transverse incision was approximated medially and laterally. Quarter inch Rashad drain was placed exiting the middle. 3-0 nylon sutures were placed superiorly and inferiorly in a safety pin was placed through the suture loops and the Rashad to allow for gradual removal of the Rashad postoperatively. The 2 port sites then were closed with interrupted 4-0 Monocryl subdermal stitches. Sponge and instrument and needle counts were reported to the surgeon to be correct. Blood loss was minimal. He tolerated the procedure well was taken to the recovery room in satisfactory edition without apparent complication. Specimen includes the end portion of the colostomy. The remnant portion of the distal sigmoid colon. The rectal and sigmoid donuts. Blood loss minimal. Drains Quarter inch Rashad drain to the subcutaneous tissue left lower quadrant stoma. Juan Mayo M.D., F.A.C.S. Type of Anesthesia:: General Anesthesiologist: Luis Lucas
[2021-01-30] MEDS: HYDROmorphone 0.5 MG/0.5 ML SYRINGE IV (14:01)
[2021-01-30] MEDS: Ondansetron 4 MG/2 ML Vial IV (14:14)
[2021-01-30] MEDS: 0.9% Saline Lock 10 ML Syringe IV (14:14)
[2021-01-30] MEDS: Ketorolac 15 MG/ML Vial IV ×2 (14:14→18:45)
[2021-01-30] MEDS: Nystatin Powder 15gm Bottle 1 APPLIC TOPICAL (16:51)
[2021-01-30] MEDS: Docusate Sodium 100 MG Capsule PO (21:02)
[2021-01-30] MEDS: Pantoprazole Sodium 20 MG Tablet PO (21:02)
[2021-01-30] MEDS: buPROPion (XL) 300 MG TABLET.XL PO (21:02)
[2021-01-31] MEDS: Acetaminophen 500 MG Tablet 1000 MG PO ×3 (00:23→13:51)
[2021-01-31] MEDS: Ketorolac 15 MG/ML Vial IV ×3 (00:23→13:50)
[2021-01-31 00:38] VITALS: BP 113/69; PULSE 91; RESP 16; TEMP 36.7; O2SAT 95
--- NOTE | 2021-01-31 05:59 | PN.SURG_ITS ---
Patient Problems: Active and Suspected Problems (Last Reviewed 01/23/21 @ 12:48 by Daisha Pineda) Candidiasis (Acute) H/O colectomy (Acute) 12/10 perf diverticulitis History of creation of ostomy (Acute) 12/10 Subjective: Patient was without complaint. Pain level at a 4. Tolerating clear liquids. - Physical Exam Vitals/I&O's: Vital Signs Temp Pulse Resp BP Pulse Ox 98.1 F 91 16 113/69 95 01/31/21 00:38 01/31/21 00:38 01/31/21 00:38 01/31/21 00:38 01/31/21 00:38 Oxygen Flow Rate (L/min) 6 Oxygen Delivery Method Room Air Weight: 244 lb 11.41 oz Body Mass Index (BMI) 33.2 Intake and Output for Last 24 Hours 01/29/21 01/30/21 01/31/21 23:59 23:59 23:59 Intake Total 1679 / 1679 400 / 400 Output Total 1130 / 1130 850 / 850 Balance 549 / 549 -450 / -450 Lungs: Clear to auscultation Abdomen: Soft, Non Tender, - - Slight drainage at the Rashad site Laboratory Results 01/30/21 06:08: POC Glucose 137 H Current Medications Acetaminophen (Acetaminophen 500 Mg Tablet) 1,000 mg PO Q6H [facility] [place] Last Admin: 01/31/21 00:23 Dose: 1,000 mg Documented by: Bupropion HCl (Bupropion (Xl) 300 Mg Tablet.Xl) 300 mg PO QHS [facility] [place] Last Admin: 01/30/21 21:02 Dose: 300 mg Documented by: Docusate Sodium (Docusate Sodium 100 Mg Capsule) 100 mg PO BID [facility] [place] Last Admin: 01/30/21 21:02 Dose: 100 mg Documented by: Enoxaparin Sodium (Enoxaparin 40 Mg/0.4 Ml Syringe) 40 mg SC DAILY [facility] [place] Fluoxetine HCl (Fluoxetine 20 Mg Capsule) 40 mg PO DAILY [facility] [place] Fluticasone Propionate (Fluticasone 0.05% 1 [place] Nasal.Sry) 1 spray NASAL [place]YNA Y VANGIE Hydromorphone HCl (Hydromorphone 0.5 Mg/0.5 Ml Syringe) 0.5 mg IV Q3H PRN PRN PRN Reason: Pain Score 6-10 Last Admin: 01/30/21 14:01 Dose: 0.5 mg Documented by: Lactated Ringer's () 1,000 mls @ 40 mls/hr IV .Q25H [facility] [place] Last Admin: 01/30/21 09:15 Dose: 40 mls/hr Documented by: Sodium Chloride () 250 mls @ 15 mls/hr IV .[id number] PRN PRN Reason: Additional IVPB Infusion Insulin Human Lispro (Insulin Lispro 100 Unit/Ml Insuln.Pen) 0 unit SC Q4H PRN PRN; Protocol PRN Reason: BG >/= 180, SEE PROTOCOL Ketorolac Tromethamine (Ketorolac 15 Mg/Ml Vial) 15 mg IV Q6H [facility] [place] [place] Stop: 01/31/21 19:01 Last Admin: 01/31/21 00:23 Dose: 15 mg Documented by: Magnesium Chloride (Magnesium Chloride 64 Mg Delay Rel.Tablet) 128 mg PO DAILY PRN PRN PRN Reason: Constipation Nutritional Formula (Lactose Free) (Ensure Clear 120 Ml Liquid) 120 ml PO 4X/DAY [facility] [place] Last Admin: 01/30/21 20:47 Dose: Not Given Documented by: Nystatin (Nystatin Powder 15gm Bottle) 1 applic TOPICAL TID [facility] [place]; Protocol Last Admin: 01/30/21 20:46 Dose: Not Given Documented by: Ondansetron HCl (Ondansetron Odt 4 Mg Tablet) 4 mg PO Q6H PRN PRN PRN Reason: NAUSEA Ondansetron HCl (Ondansetron 4 Mg/2 Ml Vial) 4 mg IV Q8H PRN PRN PRN Reason: NAUSEA Last Admin: 01/30/21 14:14 Dose: 4 mg Documented by: Oxycodone HCl (Oxycodone 5 Mg Tablet) 5 - 10 mg PO Q4H PRN PRN PRN Reason: Pain Score 4-10 Pantoprazole Sodium (Pantoprazole Sodium 20 Mg Tablet) 20 mg PO QHS [facility] [place] Last Admin: 01/30/21 21:02 Dose: 20 mg Documented by: Sodium Chloride (0.9% Saline Lock 10 Ml Syringe) 10 - 40 ml IV UD PRN PRN Reason: SALINE FLUSH Last Admin: 01/30/21 14:14 Dose: 10 ml Documented by: Medical Necessity - Tobacco Use Smoking Status: Never smoker Tobacco Use: Non-smoker Assessment/Plan All Active Problems (Last Reviewed 01/23/21 @ 12:48 by Daisha Pineda) Candidiasis (Acute) Otitis media (Acute) Contact with or suspected exposure to other viral communicable disease (Acute) H/O colectomy (Acute) History of creation of ostomy (Acute) Anxiety (Acute) Pneumoperitoneum (Acute) Small bowel obstruction (Acute) Diverticulitis (Acute) We will need to have the Rashad advanced today. Patient encouraged to mobilize. Khan will be removed. Transitional diet. I encouraged the use of incentive spirometry and mobilization. IV fluids will be moderated.
[2021-01-31 06:08] VITALS: BP 118/74; PULSE 90; RESP 16; TEMP 37; O2SAT 96
[2021-01-31] MEDS: 0.9% Saline Lock 10 ML Syringe IV ×2 (06:19→13:50)
[2021-01-31 06:26] LABS: Hematocrit 39.3 % (40-54); Hemoglobin 12.6 g/dL (13.0-16.5); Mean Corp Hgb Conc 32.1 g/dL (32-36); Mean Corpuscular Hgb 28.2 pg (27.0-32.0); Mean Corpuscular Volume 87.9 fL (80-94); Mean Platelet Vol. 9.1 fl (6.2-12.0); Platelet Count 261 K/mm3 (150-450); RBC Distribution Width CV 14.7 % (11.6-14.6); RBC Distribution Width SD 47.8 fl (35.1-43.9); Red Blood Count 4.47 M/mm3 (4.6-6.2); White Blood Count 12.7 K/mm3 (4.4-11.0)
[2021-01-31 06:47] LABS: Anion Gap 6 (5-15); BUN 8 mg/dL (7-18); BUN/Creat Ratio 9.7 RATIO (10-20); Calcium,Total 8.6 mg/dL (8.5-10.1); Chloride 105 mmol/L (98-107); Creatinine, Serum 0.82 mg/dL (0.70-1.30); EST Glomerular Filtration Rate 111 mL/min (>60); Est Glom Filt Rate - Afr Amer 135 mL/min (>60); Estimated Creatinine Clearance 134.07 ml/min; Glucose 101 mg/dL (74-106); Sodium Level 138 mmol/L (136-145)
[2021-01-31 07:10] VITALS: O2SAT 96
--- NOTE | 2021-01-31 09:00 | NURSING ---
pt reports passing flatus
[2021-01-31] MEDS: Docusate Sodium 100 MG Capsule PO (09:45)
[2021-01-31] MEDS: Fluticasone 0.05% 1 SPRAY NASAL.SRY NASAL (09:45)
[2021-01-31] MEDS: Ensure Clear 120 ML Liquid PO (09:45)
[2021-01-31] MEDS: Enoxaparin 40 MG/0.4 ML Syringe SC (09:46)
[2021-01-31] MEDS: FLUoxetine 20 MG Capsule 40 MG PO (09:50)
--- NOTE | 2021-01-31 10:40 | CASEMGMT ---
MELA MARCUS Assessment: Face to Face with pt for initial transition planning/care coordination assessment. RN ANGELINE introduced self and role at [facility], pt voices understanding and consents to assessment. Pt is A/O x4 and answers all questions appropriately at this time. Pt sitting up in bed in no distress. Care providers, pharmacy, and demographics verified/updated. Admitting Dx: Lap take down sigmoid colostomy poss conv to hand PCP: [facility] Specialists: [place], surgery Preferred Pharmacy: [facility] Retail Insurance: [employer] Prescription Benefit: yes LW/HPOA: LW and DPOA on file. Pt DPOA is ex , Rosalio Varela. LNOK: Rosalio Varela Living Arrangements: Pt lives alone in a two story house with 4 steps to enter with a rail. Pt reports being I in ADL's and denies concerns at home. Transportation: Pt drives self and denies concerns regarding transportation. DME/HHC/SNF: Pt does not have any DME at home. Denies previous HHC or SNF stays. Pt states no concerns with going home at time of dc. Pt states no further concerns/needs. CM to follow for safe dc. Advised pt to ask CM if any further question/concerns/needs arise, voices understanding. Pt Goal: Home Plan: Home
--- NOTE | 2021-01-31 13:35 | DCINST_ITS ---
Discharge Diet: - - Transitional diet Discharge Activity: May Not Drive - for 5 days after discharge Lifting Restrictions: 10 pounds Call your doctor if your incision/area has: Sudden Increased Bleeding, Increased Pain/ Swelling, Foul Smelling Discharge Suture Line Care: Avoid Pulling/Pushing, Avoid Pinching/Bending Additional Instructions: Recommend removing plastic dressing over your incision in 2 days You will be going home with the [place] drain. You will need to change the dressing daily or more often if increased drainage occurs. Using 4x4 gauze and tape may be used. Return to the office to have the Rashad removed. You may not shower until [place] drain is removed. You will continue to cover the area where the [place] drain is removed with gauze and tape until that area is completely closed. Please continue transitional diet until we see you in 10 days following discharge. Allergies/Adverse Reactions: Allergies No Known Allergies Allergy (Verified 01/23/21 12:47) Medications to take at Discharge fluoxetine 60 mg tablet 40 mg PO DAILY 11/09/17 Bupropion HCl [Wellbutrin Xl] 300 mg PO QHS 12/06/19 Fluticasone 0.05% [Flonase Nasal [place]] 1 spray NASAL DAILY 01/23/21 Omeprazole [Prilosec] 20 mg PO QHS 01/23/21 Tramadol HCl [Ultram] 50 mg PO Q6H PRN PRN 4 Days #12 tablet 01/31/21 The following prescriptions were given: Tramadol HCl [Ultram] 50 mg PO Q6H PRN PRN 4 Days #12 tablet PRN Reason: Pain 1-10 Or Fever Transmission Status: Sent to [facility] Primary Care Physician: Javid Yarbrough MD [Primary Care Provider] - Test Results: Test results from this visit will be discussed in further detail at your follow- up appointment, if applicable. Please Follow Up With: Fely Diaz PA-C - [phone] When: , 02/02 Please Follow Up With: Juan Mayo MD - [phone] When: 10 days Proposed Discharge Date: 01/31/21
[2021-01-31 14:03] VITALS: BP 131/81; PULSE 70; RESP 16; TEMP 36.7; O2SAT 96
--- NOTE | 2021-01-31 14:29 | CHAPLAIN ---
Type of Pastoral Visit _x__ Initial Visit ___ Follow-up Visit ___ On-call Visit ___ General Patient Visit ___ Spiritual Assessment ___ Family Conference ___ Bereavement ___ Rapid Response ___ Code Blue ___ Other (describe below) Pastoral Care Referral From _x__ Patient ___ Family ___ Nurse ___ Physician ___ Copying Machine Mechanic ___ Tutoring Clinician ___ Other (describe below) Sacrament/Intervention _x__ Active listening ___ Anointing ___ Advent ___ Bereavement ___ Communion ___ Stacy exploration ___ ___ Life review ___ Prayer ___ Reconciliation ___ Sacrament of Sick _x__ Supportive presence ___ Wedding ___ Other (describe below) Pastoral Comments
--- NOTE | 2021-01-31 14:34 | CASEMGMT ---
Social Work Note Per pest control pilot questions, pt has completed HCPOA and LW and provided documents to [facility]. SW reviewed chart, both HCPOA and LW are on pt's chart. SW printed off copies and placed on pt's chart. Rica Sheth BUTTON BUTTONHOLE MARKER, LATEX [employer]AM WORKER
== END 2021-01-31 16:30 | disposition home or self-care (01) | DRG 327 ==
LOC: ACINP 05:35 → MS3 11:32
PROVIDERS: Anesthesiology; Admitting Provider Surgery; PCP Family Medicine; Referring Provider Surgery; Visit Provider Surgery
PROC: 0DQE4ZZ Repair Large Intestine, Percutaneous Endoscopic Approach (ICD-10-PCS; CPT 44227; principal; 2021-01-30 07:10)
DX: K57.20 Diverticulitis of large intestine with perforation and abscess without bleeding (principal); K56.50 Intestinal adhesions [bands], unspecified as to partial versus complete obstruction; K82.8 Other specified diseases of gallbladder; B37.2 Candidiasis of skin and nail; K21.9 Gastro-esophageal reflux disease without esophagitis; F32.9 Major depressive disorder, single episode, unspecified; F41.9 Anxiety disorder, unspecified; Z93.3 Colostomy status; Z79.899 Other long term (current) drug therapy
CPT/HCPCS: 36415; 80048; 82962; 83735; 85027; 88304; 88305; 88307; 93005; 99251; J7050; J7120; A4216; C1760; G0463; J2405; J3490

== ENCOUNTER → 2021-09-29 08:10 | Outpatient (CLI) | payer OTHER, SELFPAY ==
[2021-09-29 10:52] LABS: BUN 10 mg/dL (7-18); Creatinine, Serum 0.84 mg/dL (0.70-1.30); Glucose 90 mg/dL (74-106)
[2021-09-29 10:53] LABS: Anion Gap 8 (5-15); BUN/Creat Ratio 11.8 RATIO (10-20); Calcium,Total 9.6 mg/dL (8.5-10.1); Chloride 104 mmol/L (98-107); Cholesterol 178 mg/dL (200); EST Glomerular Filtration Rate 107 mL/min (>60); Est Glom Filt Rate - Afr Amer 130 mL/min (>60); High Density Lipoprotein 33 mg/dL; Potassium 4.5 mmol/L (3.5-5.1); Sodium Level 138 mmol/L (136-145); Thyroid Stim Hormone (TSH) 2.34 uIU/mL (0.358-3.74); Triglycerides 163 mg/dL; Very Low Density Lipoprotein 33 mg/dL (5-40)
== END ==
LOC: MFPLAB 08:11
PROVIDERS: PCP Family Medicine; Referring Provider Family Medicine; Visit Provider Family Medicine
DX: Z00.00 Encounter for general adult medical examination without abnormal findings (principal)
CPT/HCPCS: 36415; 80048; 80061; 84403; 84443